=== PATIENT | female | born 1995 | race Hispanic/Latino ===

== ENCOUNTER 2018-08-06 03:29 | Emergency (ER) | payer SELFPAY ==
--- OUTSIDE RECORDS SUMMARY | 2018-08-06 03:31 | XMS REPORT ---
:1995 [facility] [address] [place] [address] Care Team Providers Name Role Phone Unavailable Unavailable Unavailable Problems This patient has no known problems. Allergies, Adverse Reactions, Alerts This patient has no known allergies or adverse reactions. Medications This patient has no known medications.
[2018-08-06 04:00] LABS: Absolute Lymphocytes (CBC) 3.7 K/uL (0.7-4.9); Absolute Monocytes 0.8 K/uL (0.1-1.3); Absolute Neutrophil 4.8 K/uL (1.8-8.0); Basophils % 0.6 % (0-1.3); Eosinophils % 1.3 % (0-4.4); Hematocrit 37.8 % (36.0-45.0); Lymphocytes % 38.9 % (15.3-44.8); MCH 30.2 pg (27.0-35.0); MCV 87.4 fL (80-100); MPV 7.8 fL (7.6-11.3); Monocytes % 8.9 % (3.3-12.3); RBC Red Blood Cell Count 4.33 M/uL (3.86-4.86)
[2018-08-06 04:20] LABS: Urine Blood 3+ (NEG); Urine Glucose NEGATIVE (NEG); Urine Protein NEGATIVE (NEG); Urine Specific Gravity 1.015 (1.005-1.030); Urine pH 6.5 (5.0-7.0)
[2018-08-06 04:25] LABS: ALT/SGPT 22 U/L (12-78); AST/SGOT 11 U/L (15-37); Albumin 3.8 g/dL (3.4-5.0); Alkaline Phosphatase 71 U/L (45-117); BUN Blood Urea Nitrogen 10 mg/dL (7-18); Bicarbonate 26 mmol/L (21-32); Bilirubin Direct < 0.1 mg/dL (0-0.2); Bilirubin Total 0.2 mg/dL (0.2-1.0); Glucose Level 94 mg/dL (74-106); Lipase 139 U/L (73-393); Potassium 3.6 mmol/L (3.5-5.1); Protein, Total 8.4 g/dL (6.4-8.2); Sodium Level 136 mmol/L (136-145)
--- NOTE | 2018-08-06 05:02 | ER ---
Nurse's Notes [facility] Name: Carlene Todd Age: 23 yrs Sex: Female : 1995 Arrival Date: 08/06/2018 Time: 03:32 Bed 5 Private MD: Diagnosis: Abdominal tenderness;Dysmenorrhea, unspecified Presentation: 08/06 03:43 Presenting complaint: Patient states: she is having lower abdominal pain starting a few bb days ago and burning with urination denies nausea, vomiting or diarrhea. Transition of care: patient was not received from another setting of care. Onset of symptoms was August 03, 2018. Risk Assessment: Do you want to hurt yourself or someone else? Patient reports no desire to harm self or others. Initial Sepsis Screen: Does the patient meet any 2 criteria? No. Patient's initial sepsis screen is negative. Does the patient have a suspected source of infection? No. Patient's initial sepsis screen is negative. Care prior to arrival: None. 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 - Social history:: Smoking status: Patient/guardian denies using tobacco, Patient/guardian denies using alcohol, street drugs. - Ebola Screening: : No symptoms or risks identified at this time. Screenin:00 Abuse screen: Denies threats or abuse. Denies injuries from another. Nutritional rr5 screening: No deficits noted. Tuberculosis screening: No symptoms or risk factors identified. Fall Risk None identified. Assessment: 04:00 General: Appears in no apparent distress. comfortable, Behavior is calm, cooperative, rr5 appropriate for age. Pain: Complains of pain in right and lower quadrant Pain does not radiate. Pain currently is 5 out of 10 on a pain scale. Quality of pain is described as aching, Pain began gradually. Neuro: Level of Consciousness is awake, alert, obeys commands, Oriented to person, place, time, situation. Cardiovascular: Capillary refill < 3 seconds Patient's skin is warm and dry. Respiratory: Airway is patent Respiratory effort is even, unlabored, Respiratory pattern is regular, symmetrical. GI: Bowel sounds present X 4 quads. Abd is soft and non tender. : Reports burning with urination. EENT: No signs and/or symptoms were reported regarding the EENT system. Derm: No signs and/or symptoms reported regarding the dermatologic system. Musculoskeletal: No signs and/or symptoms reported regarding the musculoskeletal system. 05:00 Reassessment: Patient appears in no apparent distress at this time. Patient and/or rr5 family updated on plan of care and expected duration. Pain level reassessed. 05:52 Reassessment: Patient appears in no apparent distress at this time. Patient and/or rr5 family updated on plan of care and expected duration. Pain level reassessed. discharge instruction given and explained without complaints made. Vital Signs: 03:46 BP 127 / 62; Pulse 106; Resp 16 S; Temp 98.2(O); Pulse Ox 100% on R/A; Weight 73.94 kg bb (M); Height 4 ft. 11 in. (149.86 cm) (R); Pain 10/10; 04:30 BP 121 / 72; Pulse 101; Resp 18; Pulse Ox 98% on R/A; rr5 05:36 BP 127 / 99; Pulse 100; Resp 18; Pulse Ox 99% on R/A; rr5 05:51 BP 121 / 80; Pulse 95; Resp 16; Pulse Ox 99% on R/A; rr5 03:46 Body Mass Index 32.92 (73.94 kg, 149.86 cm) ED Course: 03:32 Patient arrived in ED. al2 03:46 Triage completed. bb 03:46 Arm band placed on Patient placed in an exam room, on a stretcher, on pulse oximetry. bb 03:48 Urine collected: clean catch specimen, blood tinged. bb 04:00 Patient has correct armband on for positive identification. rr5 04:00 Pulse ox on. NIBP on. rr5 04:00 Inserted saline lock: 20 gauge in right antecubital area, using aseptic technique. rr5 Blood collected. 04:05 Milton Christianson MD is Attending Physician. phillip 05:01 Luis Stout MD is Referral Physician. [facility] 05:32 Fish Xiong, RN is Primary Nurse. rr5 05:53 No provider procedures requiring assistance completed. IV discontinued, intact, rr5 bleeding controlled, No redness/swelling at site. Pressure dressing applied. Administered Medications: 05:15 Drug: Motrin 600 mg Route: PO; rr5 05:52 Follow up: Response: No adverse reaction rr5 Outcome: 05:02 Discharge ordered by . [facility] 05:53 Discharged to home ambulatory. rr5 05:53 Condition: stable 05:53 Discharge instructions given to patient, Instructed on discharge instructions, follow up and referral plans. medication usage, Demonstrated understanding of instructions, follow-up care, medications, Prescriptions given X 3. 05:55 Patient left the ED. rr5 Signatures: Milton Christianson MD MD cha Ballard, Brenda, RN RN Celsa Winkler Raymond, RN RN rr5
--- NOTE | 2018-08-06 05:03 | EDPHYS ---
Physician Documentation [facility] Name: Carlene Todd Age: 23 yrs Sex: Female : 1995 Arrival Date: 08/06/2018 Time: 03:32 Bed 5 Private MD: ED Physician Milton Christianson HPI: 08/06 04:58 This 23 yrs old Female presents to ER via Ambulatory with complaints of phillip Abdominal Cramping, Abdominal Pain. 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 - Social history:: Smoking status: Patient/guardian denies using tobacco, Patient/guardian denies using alcohol, street drugs. - Ebola Screening: : No symptoms or risks identified at this time. ROS: 04:59 Constitutional: Negative for fever, chills, and weight loss, Eyes: Negative for injury, phillip pain, redness, and discharge, ENT: Negative for injury, pain, and discharge, Neck: Negative for injury, pain, and swelling, Cardiovascular: Negative for chest pain, palpitations, and edema, Respiratory: Negative for shortness of breath, cough, wheezing, and pleuritic chest pain, Back: Negative for injury and pain, : Negative for injury, bleeding, discharge, and swelling, MS/Extremity: Negative for injury and deformity, Skin: Negative for injury, rash, and discoloration, Neuro: Negative for headache, weakness, numbness, tingling, and seizure, Psych: Negative for depression, anxiety, suicide ideation, homicidal ideation, and hallucinations, Allergy/Immunology: Negative for hives, rash, and allergies, Endocrine: Negative for neck swelling, polydipsia, polyuria, polyphagia, and marked weight changes, Hematologic/Lymphatic: Negative for swollen nodes, abnormal bleeding, and unusual bruising. 04:59 Abdomen/GI: Positive for abdominal pain, abdominal cramps, of the right lower quadrant and left lower quadrant. Exam: 04:59 Constitutional: This is a well developed, well nourished patient who is awake, alert, phillip and in no acute distress. Head/Face: Normocephalic, atraumatic. Eyes: Pupils equal round and reactive to light, extra-ocular motions intact. Lids and lashes normal. Conjunctiva and sclera are non-icteric and not injected. Cornea within normal limits. Periorbital areas with no swelling, redness, or edema. ENT: Nares patent. No nasal discharge, no septal abnormalities noted. Tympanic membranes are normal and external auditory canals are clear. Oropharynx with no redness, swelling, or masses, exudates, or evidence of obstruction, uvula midline. Mucous membranes moist. Neck: Trachea midline, no thyromegaly or masses palpated, and no cervical lymphadenopathy. Supple, full range of motion without nuchal rigidity, or vertebral point tenderness. No Meningismus. Chest/axilla: Normal chest wall appearance and motion. Nontender with no deformity. No lesions are appreciated. Cardiovascular: Regular rate and rhythm with a normal S1 and S2. No gallops, murmurs, or rubs. Normal PMI, no JVD. No pulse deficits. Respiratory: Lungs have equal breath sounds bilaterally, clear to auscultation and percussion. No rales, rhonchi or wheezes noted. No increased work of breathing, no retractions or nasal flaring. Back: No spinal tenderness. No costovertebral tenderness. Full range of motion. Skin: Warm, dry with normal turgor. Normal color with no rashes, no lesions, and no evidence of cellulitis. MS/ Extremity: Pulses equal, no cyanosis. Neurovascular intact. Full, normal range of motion. Neuro: Awake and alert, GCS 15, oriented to person, place, time, and situation. Cranial nerves II-XII grossly intact. Motor strength 5/5 in all extremities. Sensory grossly intact. Cerebellar exam normal. Normal gait. Psych: Awake, alert, with orientation to person, place and time. Behavior, mood, and affect are within normal limits. 04:59 Abdomen/GI: Inspection: abdomen appears normal, Bowel sounds: normal, Palpation: abdomen is soft and non-tender, Liver: no appreciated palpable abnormalities, Hernia: not appreciated. Vital Signs: 03:46 BP 127 / 62; Pulse 106; Resp 16 S; Temp 98.2(O); Pulse Ox 100% on R/A; Weight 73.94 kg bb (M); Height 4 ft. 11 in. (149.86 cm) (R); Pain 10/10; 04:30 BP 121 / 72; Pulse 101; Resp 18; Pulse Ox 98% on R/A; rr5 05:36 BP 127 / 99; Pulse 100; Resp 18; Pulse Ox 99% on R/A; rr5 05:51 BP 121 / 80; Pulse 95; Resp 16; Pulse Ox 99% on R/A; rr5 03:46 Body Mass Index 32.92 (73.94 kg, 149.86 cm) bb MDM: 04:05 Patient medically screened. [facility] 05:00 Data reviewed: vital signs, nurses notes, lab test result(s). [facility] 08/06 03:43 Order name: Basic Metabolic Panel [facility] 08/06 03:43 Order name: CBC with Diff [facility] 08/06 03:43 Order name: Creatinine for Radiology [facility] 08/06 03:43 Order name: Hepatic Function [facility] 08/06 03:43 Order name: Lipase [facility] 08/06 03:44 Order name: Basic Metabolic Panel; Complete Time: 04:47 EDDC 08/06 03:44 Order name: CBC with Automated Diff; Complete Time: 04:47 EDDC 08/06 03:44 Order name: Liver (Hepatic) Function; Complete Time: 04:47 EDMS 08/06 03:44 Order name: Lipase; Complete Time: 04:47 EDDC 08/06 03:52 Order name: Urine Dipstick--Ancillary (enter results) 08/06 03:52 Order name: Urine --Ancillary (enter results) 08/06 03:52 Order name: Urine Dipstick-Ancillary; Complete Time: 04:47 EDMS 08/06 03:52 Order name: Urine --Ancillary; Complete Time: 04:47 EDDC 08/06 03:43 Order name: IV Saline Lock; Complete Time: 03:55 tl2 08/06 03:43 Order name: Labs collected and sent; Complete Time: 03:55 tl2 08/06 03:43 Order name: Urine Dipstick-Ancillary (obtain specimen); Complete Time: 03:43 tl2 08/06 03:43 Order name: Urine Test (obtain specimen); Complete Time: 03:44 tl2 Administered Medications: 05:15 Drug: Motrin 600 mg Route: PO; rr5 05:52 Follow up: Response: No adverse reaction rr5 Disposition: 08/06/18 05:02 Discharged to Home. Impression: Abdominal tenderness, Dysmenorrhea, unspecified. - Condition is Stable. - Discharge Instructions: Abdominal Pain, Adult, Dysmenorrhea, Abdominal Pain, Adult, [id number], Dysmenorrhea, Zsae-oj-Ault. - Prescriptions for Tylenol- Codeine #3 300-30 mg Oral Tablet - take 2 tablet by ORAL route every 6 hours As needed; 30 tablet. Motrin IB 200 mg Oral Tablet - take 2 tablet by ORAL route every 6 hours As needed as needed with food; 30 tablet. Cipro 250 mg Oral Tablet - take 1 tablet by ORAL route every 12 hours; 14 tablet. - Medication Reconciliation Form, Thank You Letter, Antibiotic Education, Prescription Opioid Use, Work release form, Family Work Release form. - Follow up: Private Physician; When: 2 - 3 days; Reason: Recheck today's complaints, Continuance of care, Re-evaluation by your physician. Follow up: Luis Stout MD; When: 2 - 3 days; Reason: Recheck today's complaints, Continuance of care, Re-evaluation by your physician. - Problem is new. - Symptoms have improved. Signatures: Dispatcher [employer] [facility] Milton Christianson MD MD cha Ballard, Brenda, RN RN Zulema Sauceda RN RN tl2 Fish Xiong RN RN rr5 Corrections: (The following items were deleted from the chart) 04:43 03:44 Creatinine (Radiology Only) ordered. [facility] 05:55 05:02 08/06/2018 05:02 Discharged to Home. Impression: Abdominal tenderness; rr5 Dysmenorrhea, unspecified. Condition is Stable. Forms are Medication Reconciliation Form, Thank You Letter, Antibiotic Education, Prescription Opioid Use. Follow up: Private Physician; When: 2 - 3 days; Reason: Recheck today's complaints, Continuance of care, Re-evaluation by your physician. Follow up: Luis Stout; When: 2 - 3 days; Reason: Recheck today's complaints, Continuance of care, Re-evaluation by your physician. Problem is new. Symptoms have improved. phillip
[2018-08-06] MEDS ORDERED: IBUPROFEN 400 MG TAB ONE (05:25)
[2018-08-06] MEDS ORDERED: IBUPROFEN 200 MG TAB PO ONE (05:25)
== END 2018-08-06 05:55 | disposition home or self-care (01) ==
LOC: ER 03:29
DX: N94.6 Dysmenorrhea, unspecified (principal)
CPT/HCPCS: 36415; 80048; 80076; 81003; 81025; 83690; 85025; 99284

== ENCOUNTER 2022-02-13 18:36 | Emergency (ER) | payer SELFPAY ==
--- OUTSIDE RECORDS SUMMARY | 2022-02-13 18:39 | XMS REPORT | Continuity of Care Document ---
:1995 Author Organization [facility] t Address [address] [place] [address] Care Team Providers Name Role Phone Marlo Chahal Primary Care Physician [phone] Akinsidanilo CARDENASP, C Attending Clinician Payers Payer Name Policy Type Policy Number Effective Date Expiration Date S ource Problems Condition Condition Condition Status Onset Resolution Last Treating Co mments Source Name Details Category Date Date Treatment Clinician Date Dysuria Dysuria Disease Active Univers 8-31 ity of 00:00: [address] Vaginal Vaginal Disease Active Univers itching itching 8-31 ity of 00:00: [address] Other Other Disease Active Univers general general 3-08 it[place] of counseling [place] and advice and advice 00 De dical for [facility] Branch contracept contracept bridgett bridgett management management Obesity Obesity Disease Active Univers (BMI (BMI 3-08 ity of 30-39.9) 30-39.9) 00:00: [address] Refused Refused Disease Active 2019-08 Univers influenza influenza 1-12 ity of vaccine vaccine 00:00: [address] Susceptibl Susceptibl Disease Active U nivers e to e to 7-29 ity of varicella [place] (non-immun (non-immun 00 Me dical e), e), Branch currently currently Rubella Rubella Disease Active Overview: Univ ers non-immune non-immune 11 Formattin ity of status, status, 00:00: g of this [place] antepartum antepartum 00 note Me dical might be Branch different from the original. Needs Rubella vaccine in PP Allergies, Adverse Reactions, Alerts This patient has no known allergies or adverse reactions. Social History Social Habit Start Date Stop Date Quantity Comments Source History SDOH University o f Alcohol Frequency [place] M edical Branch History [facility] University o f Alcohol Std [place] Medical Drinks Branch History [facility] University o f Alcohol Binge [place] Medic al Branch Exposure to Not sure [facility] SARS-CoV-2 [facility] (event) [place] Alcohol Comment 2021-11-29 2021-11-29 social Universit y of 00:00:00 00:00:00 [facility] Alcohol intake 2021-11-29 2021-11-29 Current drinker Unive rsity of 00:00:00 00:00:00 of alcohol [place] [facility] (finding) Branch Tobacco use and 2015-05-16 2015-05-16 Never used Universit y of exposure 00:00:00 00:00:00 [facility] Sex Ass[birth year] At [birth year] Universit y of 00:00:00 00:00:00 [facility] Smoking Status Start Date Stop Date Source Never smoker [facility] Medications Ordered Filled Start Stop Current Ordering Indication Dosage Frequency Signature Comments Components Source Medication Medication Date Date Medication? Clinician (SIG) Name Name dante Yes [id number] 1{tbl} Take 1 Univers ne 0.35 mg 4-06 tablet by ity of tablet 00:00: mouth 00 daily. Medical Branch norethindro Yes [id number] 1{tbl} Take 1 Univers ne 0.35 mg 4-06 tablet by ity of tablet 00:00: mouth [place] 00 daily. Medical Branch VITAFOL Yes TAKE ONE Unive rs ULTRA 29 mg 1-10 (1) ity of iron- 1 00:00: [place]) [place] mg-200 mg 00 BY MOUTH Medica l Cap ONCE A Branch DAY. VITAFOL Yes TAKE ONE Unive rs ULTRA 29 mg 1-10 (1) ity of iron- 1 00:00: [place] mg-200 mg 00 BY MOUTH Medica l Cap ONCE A Branch DAY. Yes [id number] 1{tbl} Take 1 U nivers vitamin 1-06 tablet by ity of w/FA tablet 00:00: mouth [place] 00 daily. Medical Branch docusate Yes [id number] 240mg Take 1 Un [place] calcium 240 1-06 capsule by it y of mg capsule 00:00: mouth once [place] 00 daily as Medical needed for Branch Constipati on. ferrous Yes [id number] 325mg Take 1 Uni vers sulfate 325 1-06 tablet by ity of mg (65 mg 00:00: mouth 2 [place] iron) 00 (two) Medical tablet times Branch daily. ibuprofen Yes [id number] 600mg Take 1 U nivers 600 mg 1-06 tablet by ity of tablet 00:00: mouth [place] 00 every 6 Medical (six) Branch hours as needed (Pain). Take with food or milk. Yes [id number] 1{tbl} Take 1 U nivers vitamin 1-06 tablet by ity of w/FA tablet 00:00: mouth [place] 00 daily. Medical Branch docusate Yes [id number] 240mg Take 1 Un [place] calcium 240 1-06 capsule by it y of mg capsule 00:00: mouth once [place] 00 daily as Medical needed for Branch Constipati on. ferrous Yes [id number] 325mg Take 1 Uni vers sulfate 325 1-06 tablet by ity of mg (65 mg 00:00: mouth 2 [place] iron) 00 (two) Medical tablet times Branch daily. ibuprofen Yes [id number] 600mg Take 1 U nivers 600 mg 1-06 tablet by ity of tablet 00:00: mouth [place] 00 every 6 Medical (six) Branch hours as needed (Pain). Take with food or milk. Immunizations Ordered Filled Immunization Date Status Comments [facility] Branch e Immunization Name Name HPV9 2020-10-31 Completed [facility] 00:00:00 [facility] HPV9 2020-10-31 Completed [facility] 00:00:00 [facility] TDAP 2020-06-23 Completed University of 00:00:00 [facility] TDAP 2020-06-23 Completed University of 00:00:00 [facility] HPV9 2017-04-09 Completed University of 00:00:00 [facility] HPV9 2017-04-09 Completed University of 00:00:00 [facility] Branch TDAP 2017-01-24 Completed University of 00:00:00 [facility] Branch TDAP 2017-01-24 Completed University of 00:00:00 [facility] Branch TDAP 2011-08-26 Completed University of 00:00:00 [facility] TDAP 2011-08-26 Completed University of 00:00:00 [facility] HEPATITIS A 2006-10-31 Completed University of 00:00:00 [facility] HPV 2006-10-31 Completed University of 00:00:00 [facility] Branch Varicella 2006-10-31 Completed University of (varivax)(chicken 00:00:00 [place] M edical pox) Branch HEPATITIS A 2006-10-31 Completed University of 00:00:00 [facility] HPV 2006-10-31 Completed University of 00:00:00 [facility] Branch Varicella 2006-10-31 Completed University of (varivax)(chicken 00:00:00 [facility] edical pox) Branch Procedures This patient has no known procedures. 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
--- NOTE | 2022-02-13 19:26 | ER ---
Nurse's Notes [facility] Name: Carlene Kumar Age: 26 yrs Sex: Female : 1995 Arrival Date: 02/13/2022 Time: 18:38 Bed 26 Private MD: Diagnosis: Otitis media, unspecified, right ear Presentation: 02/13 19:03 Chief complaint: Patient states: Right ear pain that began yesterday with runny nose; vg1 denies cough or sore throat. Coronavirus screen: Vaccine status: Patient reports being unvaccinated. Client denies travel out of the [place] in the last 14 days. Ebola Screen: Patient denies exposure to infectious person. Patient denies travel to an Ebola-affected area in the 21 days before illness onset. Initial Sepsis Screen: Does the patient meet any 2 criteria? No. Patient's initial sepsis screen is negative. Does the patient have a suspected source of infection? No. Patient's initial sepsis screen is negative. Risk Assessment: Do you want to hurt yourself or someone else? Patient reports no desire to harm self or others. Onset of symptoms was February 12, 2022. 19:03 Method Of Arrival: Ambulatory vg1 19:03 Acuity: CAYLA 4 vg1 Triage Assessment: 19:04 General: Appears uncomfortable, Behavior is calm, cooperative. Pain: Complains of pain vg1 in right ear Pain currently is 10 out of 10 on a pain scale. 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 - Social history:: Smoking status: Patient denies any tobacco usage or history of. Screenin:18 Abuse screen: Denies threats or abuse. Nutritional screening: No deficits noted. 1 Tuberculosis screening: No symptoms or risk factors identified. Fall Risk None identified. Assessment: 19:18 Reassessment: Patient appears in no apparent distress at this time. General: Appears. 1 EENT: No deficits noted. Vital Signs: 19:03 BP 114 / 68; Pulse 93; Resp 16; Temp 98.6(TE); Pulse Ox 100% on R/A; Weight 79.38 kg; 1 Height 4 ft. 11 in. (149.86 cm); Pain 10/10; 19:18 BP 100 / 64; Pulse 90; Resp 18; Pulse Ox 100% on R/A; bh1 19:33 BP 110 / 54; Pulse 100; Resp 18; Temp 98.2; Pulse Ox 100% on R/A; bh1 19:03 Body Mass Index 35.35 (79.38 kg, 149.86 cm) [facility] ED Course: 18:38 Patient arrived in ED. rg4 19:02 Milton Gonzalez PA is PHCP. cp 19:02 Milton Christianson MD is Attending Physician. cp 19:04 Triage completed. 1 19:04 Arm band placed on. 1 19:18 Meeta Zepeda, RN is Primary Nurse. 1 19:18 No apparent distress. Awaiting disposition. 1 19:18 Patient has correct armband on for positive identification. Pulse ox on. NIBP on. 1 19:18 No provider procedures requiring assistance completed. Patient did not have IV access [facility] during this emergency room visit. Administered Medications: No medications were administered Medication: 19:18 VIS not applicable for this client. [facility] Outcome: 19:26 Discharge ordered by . cp 19:33 Discharged to home ambulatory. 1 19:33 Condition: good 19:33 Discharge instructions given to patient, Instructed on discharge instructions, follow up and referral plans. medication usage, Demonstrated understanding of instructions, follow-up care, medications, Prescriptions given X 2. 19:34 Patient left the ED. [facility] Signatures: Milton Gonzalez PA PA cp Garcia, Rubi rg4 Rosario Louis RN RN [facility] Meeta Zepeda, LEONOR RN [facility] Corrections: (The following items were deleted from the chart) 19:05 19:04 Home Meds: Orsythia 0.1-20 mg-mcg Oral tab 1 tab once daily; [place] [id number]
--- NOTE | 2022-02-13 19:26 | EDPHYS ---
Physician Documentation [facility] Name: Carlene Kumar Age: 26 yrs Sex: Female : 1995 Arrival Date: 02/13/2022 Time: 18:38 Bed 26 Private MD: ED Physician Milton Christianson HPI: 02/13 19:19 This 26 yrs old Female presents to ER via Ambulatory with complaints of Ear cp Pain. 19:19 The patient presents with pain, that is acute. The complaints affect the right ear. cp Onset: The symptoms/episode began/occurred yesterday. Associated signs and symptoms: Pertinent negatives: cough, fever, sinus trouble, sore throat, vomiting. Severity of symptoms: in the emergency department the symptoms are unchanged despite home interventions. 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 - Social history:: Smoking status: Patient denies any tobacco usage or history of. ROS: 19:22 Eyes: Negative for injury, pain, redness, and discharge. cp 19:22 Constitutional: Negative for body aches, chills, fever, poor PO intake. 19:22 ENT: Positive for ear pain, Negative for drainage from ear(s), sore throat, difficulty swallowing, difficulty handling secretions. 19:22 Respiratory: Negative for cough, shortness of breath, wheezing. 19:22 Abdomen/GI: Negative for abdominal pain, vomiting, diarrhea, constipation. 19:22 Skin: Negative for rash. 19:22 Neuro: Negative for altered mental status, headache, weakness. 19:22 All other systems are negative. Exam: 19:23 Head/Face: Normocephalic, atraumatic. cp 19:23 Constitutional: The patient appears in no acute distress, alert, awake, non-toxic, well developed, well nourished. 19:23 Eyes: Periorbital structures: appear normal, Conjunctiva: normal, no exudate, no injection, Lids and lashes: appear normal, bilaterally. 19:23 ENT: External ear(s): are unremarkable, Ear canal(s): swelling, of the right canal, TM's: bulging, on the right, dullness, on the right, Nose: is normal, Mouth: Lips: moist, Oral mucosa: moist, Posterior pharynx: Airway: no evidence of obstruction, patent. 19:23 Neck: ROM/movement: is normal, is supple, without pain, no range of motions limitations, no meningismus. 19:23 Chest/axilla: Inspection: normal. 19:23 Cardiovascular: Rate: normal. 19:23 Respiratory: the patient does not display signs of respiratory distress, Respirations: normal, no use of accessory muscles, no retractions, labored breathing, is not present. 19:23 Abdomen/GI: Exam negative for discomfort, distension, guarding, Inspection: abdomen appears normal. Vital Signs: 19:03 BP 114 / 68; Pulse 93; Resp 16; Temp 98.6(TE); Pulse Ox 100% on R/A; Weight 79.38 kg; vg1 Height 4 ft. 11 in. (149.86 cm); Pain 10/10; 19:18 BP 100 / 64; Pulse 90; Resp 18; Pulse Ox 100% on R/A; bh1 19:33 BP 110 / 54; Pulse 100; Resp 18; Temp 98.2; Pulse Ox 100% on R/A; bh1 19:03 Body Mass Index 35.35 (79.38 kg, 149.86 cm) vg1 MDM: 19:15 Patient medically screened. cp 19:25 Data reviewed: vital signs, nurses notes, and as a result, I will discharge patient. cp Administered Medications: No medications were administered Disposition Summary: 02/13/22 19:26 Discharge Ordered Location: Home cp Problem: new cp Symptoms: are unchanged cp Condition: Stable cp Diagnosis - Otitis media, unspecified, right ear cp Followup: cp - With: Private Physician - When: 2 - 3 days - Reason: Worsening of condition Discharge Instructions: - Discharge Summary Sheet cp - Otitis Media, Adult cp Forms: - Medication Reconciliation Form cp - Thank You Letter cp - Antibiotic Education cp - Prescription Opioid Use cp Prescriptions: - Augmentin 875-125 mg Oral Tablet - take 1 tablet by ORAL route every 12 hours for 10 days; 20 tablet; Refills: 0, cp Product Selection Permitted - Ibuprofen 800 mg Oral Tablet - take 1 tablet by ORAL route every 8 hours As needed take with food; 30 tablet; cp Refills: 0, Product Selection Permitted Signatures: Milton Gonzalez PA PA cp Garcia, Victoria RN RN vg1 Corrections: (The following items were deleted from the chart) 19:05 19:04 Home Meds: Orsythia 0.1-20 mg-mcg Oral tab 1 tab once daily; vg1 vg1
[2022-02-13 19:52] VITALS: O2SAT 100
[2022-02-13 19:55] VITALS: BP 110/54; TEMP 98.2
== END 2022-02-13 19:34 | disposition home or self-care (01) ==
LOC: ER 18:36
DX: H66.91 Otitis media, unspecified, right ear (principal)

== ENCOUNTER 2022-02-15 11:15 | Emergency (ER) | payer SELFPAY ==
--- OUTSIDE RECORDS SUMMARY | 2022-02-15 11:19 | XMS REPORT | Continuity of Care Document ---
:1995 Author Organization [facility] t Address [address] [place] [address] Care Team Providers Name Role Phone Marlo Chahal Primary Care Physician [phone] Sandeep CARDENASP C Attending Clinician Payers Payer Name Policy Type Policy Number Effective Date Expiration Date S ource Problems Condition Condition Condition Status Onset Resolution Last Treating Co mments Source Name Details Category Date Date Treatment Clinician Date Dysuria Dysuria Disease Active Univers 8-31 ity of 00:00: [address] Vaginal Vaginal Disease Active Univers itching itching 8-31 ity of 00:00: [address] Other Other Disease Active Univers general general 3-08 it[place] of [place] advice and advice 00 Ia dical for Branch contracept contracept bridgett bridgett management management Obesity Obesity Disease Active Univers (BMI (BMI 3-08 ity of 30-39.9) 30-39.9) 00:00: [address] Refused Refused Disease Active 2019-08 Univers influenza influenza 1-12 ity of vaccine vaccine 00:00: [address] Susceptibl Susceptibl Disease Active U nivers e to e to 7-29 ity of varic[place]-immun (non-immun 00 Me dical e), e), Branch currently currently Rubella Rubella Disease Active Overview: Univ ers non-immune non-immune 09-05 [place] ity of status, status, 00:00: g of this [place] antepartum antepartum 00 note Me dical might be Branch different from the original. Needs Rubella vaccine in PP Allergies, Adverse Reactions, Alerts This patient has no known allergies or adverse reactions. Social History Social Habit Start Date Stop Date Quantity Comments Source History SDOH University o f Alcohol Frequency [place] M edical Branch History SDOH University o f Alcohol Std [place] [facility] Drinks Branch History [facility] University o f Alcohol Binge [place] Medic al Branch Exposure to Not sure [facility] SARS-CoV-2 [facility] (event) [place] Alcohol Comment 2021-11-29 2021-11-29 social Universit y of 00:00:00 00:00:00 [facility] Alcohol intake 2021-11-29 2021-11-29 Current drinker Unive rsity of 00:00:00 00:00:00 of alcohol [place] [facility] (finding) Branch Tobacco use and 2015-05-16 2015-05-16 Never used Universit y of exposure 00:00:00 00:00:00 [facility] Sex Assigned At [birth year] Universit y of 00:00:00 00:00:00 [facility] Smoking Status Start Date Stop Date Source Never smoker [facility] Medications Ordered Filled Start Stop Current Ordering Indication Dosage Frequency Signature Comments Components Source Medication Medication Date Date Medication? Clinician (SIG) Name Name mayero Yes [id number] 1{tbl} Take 1 Univers ne 0.35 mg 4-06 tablet by ity of tablet 00:00: mouth 00 daily. Medical Branch norethindro Yes [id number] 1{tbl} Take 1 Univers ne 0.35 mg 4-06 tablet by ity of tablet 00:00: mouth 00 daily. Medical Branch VITAFOL Yes TAKE [...] l Cap ONCE A Branch DAY. Yes [id number] 1{tbl} Take 1 U nivers vitamin 1-06 tablet by ity of w/FA tablet 00:00: mouth [place] 00 daily. Medical Branch docusate Yes [id number] 240mg Take 1 Un [place] calcium 240 1-06 capsule by it y of mg capsule 00:00: mouth once [place] 00 daily as Medical needed for Branch Constipati on. ferrous Yes [id number] 325mg Take 1 Uni vers sulfate 325 1-06 tablet by ity of mg (65 mg 00:00: mouth 2 [place] iron) 00 (two) Medical tablet times Branch daily. ibuprofen Yes [id number] 600mg Take 1 U nivers 600 mg 1-06 tablet by ity of tablet 00:00: mouth [place] 00 every 6 Medical (six) Branch hours as needed (Pain). Take with food or milk. Yes [id number] 1{tbl} Take 1 U nivers vitamin 1-06 tablet by ity of w/FA tablet 00:00: mouth [place] 00 daily. Medical Branch docusate Yes [id number] 240mg Take 1 Un [place] calcium 240 1-06 capsule by it y of mg capsule 00:00: mouth once [place] 00 daily as Medical needed for Branch Constipati on. ferrous Yes [id number] 325mg Take 1 Uni vers sulfate 325 1-06 tablet by ity of mg (65 mg 00:00: mouth 2 [place] iron) 00 (two) Medical tablet times Branch daily. ibuprofen Yes [id number] 600mg Take 1 U nivers 600 mg 1-06 tablet by ity of tablet 00:00: mouth [place] 00 every 6 Medical (six) Branch hours as needed (Pain). Take with food or milk. Immunizations Ordered Filled Immunization Date Status Comments [facility] e Immunization Name Name HPV9 2020-10-31 Completed [facility] 00:00:00 [facility] HPV9 2020-10-31 Completed [facility] 00:00:00 [facility] TDAP 2020-06-23 Completed University of 00:00:00 [facility] TDAP 2020-06-23 Completed University of 00:00:00 [facility] HPV9 2017-04-09 Completed University of 00:00:00 [facility] Branch HPV9 2017-04-09 Completed University of 00:00:00 [facility] TDAP 2017-01-24 Completed University of 00:00:00 [facility] Branch TDAP 2017-01-24 Completed University of 00:00:00 [facility] Branch TDAP 2011-08-26 Completed University of 00:00:00 [facility] Branch TDAP 2011-08-26 Completed University of 00:00:00 [facility] Branch HEPATITIS A 2006-10-31 Completed University of 00:00:00 [facility] Branch HPV 2006-10-31 Completed University of 00:00:00 [facility] Varicella 2006-10-31 Completed University of (varivax)(chicken 00:00:00 [facility] edical pox) Branch HEPATITIS A 2006-10-31 Completed University of 00:00:00 [facility] HPV 2006-10-31 Completed University of 00:00:00 [facility] Branch Varicella 2006-10-31 Completed University of (varivax)(chicken 00:00:00 [facility] edical pox) Branch Procedures This patient has no known procedures. 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
--- NOTE | 2022-02-15 12:00 | EDPHYS ---
Physician Documentation [facility] Name: Carlene Kumar Age: 26 yrs Sex: Female : 1995 Arrival Date: 02/15/2022 Time: 11:16 Bed 5 Private MD: ED Physician Tucker Franco HPI: 02/15 11:52 This 26 yrs old Female presents to ER via Ambulatory with complaints of Ear cp Pain. 11:52 The patient presents with pain, that is acute. The complaints affect the right ear and cp left ear. 11:52 Associated signs and symptoms: Pertinent negatives: cough, fever, sinus trouble, sore cp throat, vomiting, drainage from ears. 11:52 Severity of symptoms: in the emergency department the symptoms are unchanged despite cp taking prescribed oral antibiotics. 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 ROS: 11:55 Constitutional: Negative for body aches, chills, fever, poor PO intake. cp 11:55 Eyes: Negative for injury, pain, redness, and discharge. cp 11:55 ENT: Positive for ear pain, Negative for drainage from ear(s), sinus congestion, sore throat, difficulty swallowing, difficulty handling secretions. 11:55 Respiratory: Negative for cough, shortness of breath, wheezing. 11:55 Abdomen/GI: Negative for abdominal pain, vomiting, diarrhea, constipation. 11:55 Skin: Negative for cellulitis, rash. 11:55 Neuro: Negative for altered mental status, dizziness, headache, weakness. 11:55 All other systems are negative. Exam: 11:57 Constitutional: The patient appears in no acute distress, alert, awake, non-toxic, well cp developed, well nourished. 11:57 Head/Face: Normocephalic, atraumatic. cp 11:57 Eyes: Periorbital structures: appear normal, Conjunctiva: normal, no exudate, no injection, Sclera: no appreciated abnormality, Lids and lashes: appear normal, bilaterally. 11:57 ENT: External ear(s): are unremarkable, Ear canal(s): erythema, that is minimal, bilaterally, purulent discharge, that is minimal, bilaterally, swelling, that is moderate, of the right canal, TM's: bulging, bilaterally, erythema, that is mild, bilaterally, Nose: is normal, Mouth: Lips: moist, Oral mucosa: pink and intact, moist, Posterior pharynx: Airway: no evidence of obstruction, patent. 11:57 Neck: ROM/movement: is normal, is supple, without pain, no range of motions limitations, no meningismus, Lymph nodes: no appreciated lymphadenopathy. 11:57 Chest/axilla: Inspection: normal. 11:57 Cardiovascular: Rate: tachycardic, Rhythm: regular. 11:57 Respiratory: the patient does not display signs of respiratory distress, Respirations: normal, no use of accessory muscles, no retractions. 11:57 Abdomen/GI: Exam negative for discomfort, distension, guarding, Inspection: abdomen appears normal. 11:57 Skin: cellulitis, is not appreciated, no rash present. Vital Signs: 11:31 BP 102 / 57; Pulse 115; Resp 18 S; Temp 98.3(O); Pulse Ox 100% on R/A; Weight 79.38 kg aa5 (R); Height 4 ft. 11 in. (149.86 cm) (R); Pain 10/10; 11:31 Body Mass Index 35.35 (79.38 kg, 149.86 cm) aa5 MDM: 11:23 Patient medically screened. cp 12:00 Data reviewed: vital signs, nurses notes. cp 12:00 Differential diagnosis: otitis media, otitis externa, ruptured TM, cerumen impaction. cp Counseling: I had a detailed discussion with the patient and/or guardian regarding: the historical points, exam findings, and any diagnostic results supporting the discharge/admit diagnosis, the need for outpatient follow up, an ENT specialist, to return to the emergency department if symptoms worsen or persist or if there are any questions or concerns that arise at home. Administered Medications: No medications were administered Disposition: 13:00 Co-signature as Attending Physician, Tucker Franco MD I agree with the assessment and kdr plan of care. Disposition Summary: 02/15/22 12:00 Discharge Ordered Location: Home cp Problem: an ongoing problem cp Symptoms: are unchanged cp Condition: Stable cp Diagnosis - Otitis externa in other diseases classified elsewhere, bilateral cp Followup: cp - With: Corina Alcantar MD - When: 2 - 3 days - Reason: Worsening of condition Discharge Instructions: - Discharge Summary Sheet cp - Ear Drops, Adult cp - Otitis Externa cp Forms: - Medication Reconciliation Form cp - Thank You Letter cp - Antibiotic Education cp - Prescription Opioid Use cp Prescriptions: - Ciprodex 0.3-0.1 % Otic Drops, Suspension - instill 4 drops by OTIC route every 12 hours for 7 days , for ears ONLY; 1 cp Container; Refills: 0, Product Selection Permitted Signatures: Tucker Franco MD MD kdr Britta Fortune RN RN aa5 Leah Hubbard RN RN ph Lisa, Milton, PA PA cp Corrections: (The following items were deleted from the chart) 11:35 11:34 PSHx: None; aa5 aa5
--- NOTE | 2022-02-15 12:00 | ER ---
Nurse's Notes [facility] Name: Carlene Kumar Age: 26 yrs Sex: Female : 1995 Arrival Date: 02/15/2022 Time: 11:16 Bed 5 Private MD: Diagnosis: Otitis externa in other diseases classified elsewhere, bilateral Presentation: 02/15 11:31 Chief complaint: Patient states: was seen here for ear pain 02/13/22 and is currently aa5 taking antibiotics, reports still has ear pain, started with pain to right ear and now it's both ears. Coronavirus screen: At this time, the client does not indicate any symptoms associated with coronavirus-19. Ebola Screen: Patient denies travel to an Ebola-affected area in the 21 days before illness onset. Initial Sepsis Screen: Does the patient meet any 2 criteria? No. Patient's initial sepsis screen is negative. Does the patient have a suspected source of infection? No. Patient's initial sepsis screen is negative. Risk Assessment: Do you want to hurt yourself or someone else? Patient reports no desire to harm self or others. Onset of symptoms was January 2022. 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 Screenin:37 Abuse screen: Denies threats or abuse. Nutritional screening: No deficits noted. [facility] Tuberculosis screening: No symptoms or risk factors identified. Fall Risk None identified. Assessment: 11:36 General: Appears in no apparent distress. Behavior is calm, cooperative. Pain: 6 Complains of pain in left ear Pain currently is 9 out of 10 on a pain scale. Quality of pain is described as sharp, shooting, Pain began 2-3 days ago. Is continuous. EENT: Ear canal w/ drainage noted from right ear Reports nasal congestion pain in forehead and left ear Pain is 8 out of 10 on a pain scale. Vital Signs: 11:31 BP 102 / 57; Pulse 115; Resp 18 S; Temp 98.3(O); Pulse Ox 100% on R/A; Weight 79.38 kg aa5 (R); Height 4 ft. 11 in. (149.86 cm) (R); Pain 10; 11:31 Body Mass Index 35.35 (79.38 kg, 149.86 cm) 5 ED Course: 11:16 Patient arrived in ED. mr 11:19 Milton Gonzalez PA is PHCP. cp 11:19 Tucker Franco MD is Attending Physician. cp 11:26 Leah Hubbard, RN is Primary Nurse. ph 11:26 Arm band placed on Patient placed in an exam room, on a stretcher. 11:33 Triage completed. aa5 11:37 Bed in low position. Call light in reach. 6 11:37 No provider procedures requiring assistance completed. 6 11:59 Corina Alcantar MD is Referral Physician. cp 12:19 Patient did not have IV access during this emergency room visit. aa5 Administered Medications: No medications were administered Outcome: 12:00 Discharge ordered by MD. cp 12:19 Discharged to home ambulatory. aa5 12:19 Condition: good 12:19 Discharge instructions given to patient, Instructed on discharge instructions, follow up and referral plans. medication usage, Demonstrated understanding of instructions, follow-up care, medications, Prescriptions given X 1. 12:20 Patient left the ED. 5 Signatures: Beena Ortiz mr FortuneBritta, RN RN [facility] Leah Hubbard, RN RN Milton Gonzalez PA PA cp Maria C Galicia RN RN [facility] Corrections: (The following items were deleted from the chart) 11:34 11:31 Chief complaint: Patient states: was seen here for ear pain 02/13/22 and is aa5 currently taking antibiotics, reports still has ear pain. aa5 11:35 11:34 PSHx: None; aa5 aa5
[2022-02-15 12:27] VITALS: BP 102/57; TEMP 98.3; O2SAT 100
== END 2022-02-15 12:20 | disposition home or self-care (01) ==
LOC: ER 11:15
DX: H60.93 Unspecified otitis externa, bilateral (principal)
CPT/HCPCS: 99282

== ENCOUNTER 2024-05-20 03:12 | Emergency (ER) | payer SELFPAY ==
--- OUTSIDE RECORDS SUMMARY | 2024-05-20 03:17 | XMS REPORT | Continuity of Care Document ---
Author Name Unknown Address [address] [facility] [place] [address] [facility] thconnect Address [address] [facility] [address] [facility] [place] [address] Care Team Providers Care Custody Officer Name Role Phone Marlo Chahal Primary Care Physician Un available David Regalado Attending Clinician [phone] David Regalado Attending Clinician [phone] TRICIA HOPKINS Attending Clinician Unavail able Tricia Mosher Attending Clinician + SUELLEN RICHARDSON Attending Clinician UnavailSuellen Adam CNM Attending Clinician [phone] Doctor Unassigned, [place] Attending Clinician U Marlo Thomas Attending Clinician UnaMARLO Lewis Attending Clinician Unavailab NAJMA Hackett Attending Clinician Unavailabl e Payers Payer Name Policy Type Policy Number Effective Date Expirati on Date Source [facility] [employer] [id number] 2020 00:00:00 FAMILY [employer]ANNING SONIA [id number] 2023 00:00:00 [employer] PENDING PENDING 2020 00:00:00 Problems Condition Name Condition Details Condition Category Status Onset Date Resolution Date Last Treatment Date Treating Clinician Comments Source History of abnormal cervical Pap smear History of abnormal cervical Pap smear Disease Active - 00:00: 00 Overview: Formattin g of this note might be different from the original. 11/2021 ASCUS07/2 022 negative, routine screening [facility] Obesity (BMI 30-39.9) Obesity (BMI 30-39.9) Disease Active 3-08 00:00: 00 [facility] Dysuria Dysuria Disease Resolve d 8-31 00:00: 00 2023-03-05 00:00:00 2023-03-05 15:27:04 [facility] Vaginal itching Vaginal itching Disease Resolve d 8- 00:00: 00 2023-03-05 00:00:00 2023-03-05 15:27:16 [facility] Well woman exam Well woman exam Disease Resolve d 3- 00:00: 00 2023-03-05 00:00:00 2023-03-05 15:27:03 [facility] Refused influenza vaccine Refused influenza vaccine Disease Resolve d 2019-08 1-12 00:00: 00 2023-03-05 00:00:00 2023-03-05 15:27:01 [facility] Susceptibl e to varicella (non-immun e), currently Susceptibl e to varicella (non-immun e), currently Disease Resolve d 7- 00:00: 00 2023-03-05 00:00:00 2023-03-05 15:27:00 [facility] Rubella non-immune status, antepartum Rubella non-immune status, antepartum Disease Resolve d - 00:00: 00 2023-03-05 00:00:00 2023-03-05 15:26:58 Overview: Formattin g of this note might be different from the original. Needs Rubella vaccine in PP [facility] care and examinatio n of lactating mother care and examinatio n of lactating mother Disease Resolve d 1-29 00:00: 00 2020-10-31 00:00:00 2020-10-31 16:11:59 [facility] Obesity affecting in third trimester Obesity affecting in third trimester Disease Resolve d 02-21 00:00: 00 2020-10-31 00:00:00 2020-10-31 16:12:05 [facility] Anemia, Anemia, Disease Resolve d 8-15 00:00: 00 2020-10-31 00:00:00 2020-10-31 16:12:07 [facility] 38 weeks gestation of 38 weeks gestation of Disease Resolve d 1-05 00:00: 00 2020-09-23 00:00:00 2020-09-23 15:54:50 [facility] Rupture of membranes with meconium present Rupture of membranes with meconium present Disease Resolve d 1-05 00:00: 00 2020-09-23 00:00:00 2020-09-23 15:54:43 [facility] Anemia of mother in , antepartum Anemia of mother in , antepartum Disease Resolve d 2019-08 0-16 00:00: 00 2020-09-23 00:00:00 2020-09-23 15:54:49 [facility] Supervisio n of high risk in third trimester Supervisio n of high risk in third trimester Disease Resolve d 02-21 00:00: 00 2020-09-23 00:00:00 2020-09-23 15:54:39 [facility] Multiparit y Multiparit y Disease Resolve d 02-21 00:00: 00 2020-09-23 00:00:00 2020-09-23 15:54:48 [facility] (spontaneo us vaginal delivery) (spontaneo us vaginal delivery) Disease Resolve d 0 8-13 00:00: 00 2020-09-23 00:00:00 2020-09-23 15:54:38 [facility] Single live Single live Disease Resolve d 8-13 00:00: 00 2020-09-23 00:00:00 2020-09-23 15:54:41 [facility] Placenta previa in second trimester Placenta previa in second trimester Disease Resolve d 24 00:00: 00 2020-07-19 00:00:00 2020-07-19 14:56:12 [facility] Encounter for control pills maintenanc e Encounter for control pills maintenanc e Disease Resolve d 02-03 00:00: 00 2020-02-22 00:00:00 2020-02-22 08:25:51 [facility] Well woman exam Well woman exam Disease Resolve d 02-03 00:00: 00 2020-02-22 00:00:00 2020-02-22 08:25:49 [facility] BMI 34.0-34.9, adult BMI 34.0-34.9, adult Disease Resolve d 02-03 00:00: 00 2020-02-22 00:00:00 2020-02-22 08:25:55 [facility] Depo-Prove ra contracept bridgett status Depo-Prove ra contracept bridgett status Disease Resolve d 6-07 00:00: 00 2020-02-22 00:00:00 2020-02-22 08:25:52 [facility] Encounter for contracept bridgett management , unspecifie d type Encounter for contracept bridgett management , unspecifie d type Disease Resolve d 6-23 00:00: 00 2020-02-22 00:00:00 2020-02-22 08:25:50 [facility] Vaginal yeast infection Vaginal yeast infection Disease Resolve d 4-03 00:00: 00 2020-02-22 00:00:00 2020-02-22 08:25:46 [facility] Class 1 obesity with body mass index (BMI) of 34.0 to 34.9 in adult, unspecifie d obesity type, unspecifie d whether serious comorbidit y present Class 1 obesity with body mass index (BMI) of 34.0 to 34.9 in adult, unspecifie d obesity type, unspecifie d whether serious comorbidit y present Disease Resolve d 2-27 00:00: 00 2020-02-22 00:00:00 2020-02-22 08:25:56 [facility] Well woman exam with routine gynecologi maddie exam Well woman exam with routine gynecologi maddie exam Disease Resolve d 2015-08 0-31 00:00: 00 2020-02-22 00:00:00 2020-02-22 08:25:48 [facility] Maternal varicella, non-immune Maternal varicella, non-immune Disease Resolve d 2-27 00:00: 00 2018-01-30 00:00:00 2018-01-30 08:53:30 [facility] Indication for care in labor or delivery Indication for care in labor or delivery Disease Resolve d 8-12 00:00: 00 2017-05-03 00:00:00 2017-05-03 11:09:52 [facility] 37 weeks gestation of 37 weeks gestation of Disease Resolve d 8-12 00:00: 00 2017-05-03 00:00:00 2017-05-03 11:29:38 [facility] Uterine size-date discrepanc y, antepartum , third trimester Uterine size-date discrepanc y, antepartum , third trimester Disease Resolve d 8-04 00:00: 00 2017-05-03 00:00:00 2017-05-03 11:29:35 [facility] Insufficie nt weight gain of , third trimester Insufficie nt weight gain of , third trimester Disease Resolve d 8-04 00:00: 00 2017-05-03 00:00:00 2017-05-03 11:29:36 [facility] Oligohydra mnios antepartum Oligohydra mnios antepartum Disease Resolve d 6-23 00:00: 00 2017-05-03 00:00:00 2017-05-03 11:29:34 [facility] Traumatic injury during in third trimester Traumatic injury during in third trimester Disease Resolve d 6-20 00:00: 00 2017-05-03 00:00:00 2017-05-03 11:29:31 [facility] Supervisio n of high risk , antepartum , second trimester Supervisio n of high risk , antepartum , second trimester Disease Resolve d 2016-0 4-03 00:00: 00 2017-05-03 00:00:00 2017-05-03 11:29:30 [facility] Anemia in , unspecifie d trimester Anemia in , unspecifie d trimester Disease Resolve d 0 6-02 00:00: 00 2017-04-09 00:00:00 2017-04-09 06:34:22 [facility] 30 weeks gestation of 30 weeks gestation of Disease Resolve d 24 00:00: 00 2017-03-15 00:00:00 2017-03-15 13:30:17 [facility] Nausea and vomiting in prior to 22 weeks gestation Nausea and vomiting in prior to 22 weeks gestation Disease Resolve d 10-24 00:00: 00 2017-01-10 00:00:00 2017-01-10 15:31:33 [facility] High risk , antepartum High risk , antepartum Disease Resolve d -01 00:00: 00 2016-11-26 00:00:00 2016-11-26 15:13:24 [facility] Obesity, unspecifie d Obesity, unspecifie d Disease Resolve d 2015-08 00:00: 00 2016-10-24 00:00:00 2016-10-24 15:33:36 [facility] Depo contracept ion Depo contracept ion Disease Resolve d 01-03 00:00: 00 2016-06-25 00:00:00 2016-06-25 14:08:02 [facility] UTI symptoms UTI symptoms Disease Resolve d 01-03 00:00: 00 2016-06-25 00:00:00 2016-06-25 14:08:06 [facility] Contracept bridgett management Contracept bridgett management Disease Resolve d 05-16 00:00: 00 2016-06-25 00:00:00 2022-03-11 00:37:43 [facility] Backache Backache Disease Resolve d 05-16 00:00: 00 2016-01-04 00:00:00 2022-03-11 00:37:43 [facility] Routine or child health check Routine infant or child health check Disease Resolve d 9- 00:00: 00 2015-05-16 00:00:00 2015-05-16 16:53:01 [facility] Impetigo Impetigo Disease Resolve d 4-10 00:00: 00 2015-05-16 00:00:00 2015-05-16 16:53:00 [facility] Other acute infections of external ear Other acute infections of external ear Disease Resolve d - 00:00: 00 2015-05-16 00:00:00 2015-05-16 16:52:58 [facility] Allergies, Adverse Reactions, Alerts Allergy Name Allergy Type Status Severity Reaction(s) Onset Date Inactive Date Treating Clinician Comments Source NO KNOWN ALLERGIE S Drug Class Active [facility] Social History Social Habit Start Date Stop Date Quantity Comments Source History SDOH Alcohol Frequency [facility] History SDOH Alcohol Std Drinks [facility] History SDOH Alcohol Binge [facility] History of Social function 2024-03-11 00:00:00 2024-03-11 00:00:00 [facility] Alcoholic beverage intake 2024-03-11 00:00:00 2024-03-11 00:00:00 Current drinker of alcohol (finding) [facility] Tobacco use and exposure 2023-03-05 00:00:00 2023-03-05 00:00:00 Smokeless tobacco non-user [facility] Alcohol intake 2023-03-05 00:00:00 2023-03-05 00:00:00 Current drinker of alcohol (finding) [facility] Exposure to SARS-CoV-2 (event) 2021-10-30 00:00:00 2021-11-29 14:04:00 Not sure [facility] Alcohol Comment 2021-11-29 00:00:00 2021-11-29 00:00:00 social [facility] Sex assigned at 1995 00:00:00 1995 00:00:00 [facility] Smoking Status Start Date Stop Date Source Never smoked tobacco [facility] Medications Ordered Medication Name Filled Medication Name Start Date Stop Date Current Medication? Ordering Clinician Indication Dosage Frequency Signature (SIG) Comments Components Source VIENVA 0.1-20 mg-mcg per tablet 04-13 00:00: 00 Yes [id number] 1{tbl} TAKE 1 TABLET BY MOUTH IN THE MORNING [facility] levonorgest rel-ethinyl estradiol 0.1-20 mg-mcg per tablet 03-11 00:00: 00 04-13 00:00 :00 No [id number] 1{tbl} Take 1 tablet by mouth in the morning. [facility] levonorgest rel-ethinyl estradiol 0.1-20 mg-mcg per tablet 03-05 00:00: 00 03-11 00:00 :00 No [id number] 1{tbl} Take 1 tablet by mouth in the morning. [facility] norethindro ne 0.35 mg tablet 03-05 00:00: 00 03-05 00:00 :00 No [id number] 1{tbl} Take 1 tablet by mouth in the morning. [facility] norethindro ne 0.35 mg tablet 6- 00:00: 00 03-05 00:00 :00 No [id number] 1{tbl} Take 1 tablet by mouth in the morning. [facility] norethindro ne 0.35 mg tablet 4- 00:00: 00 02-18 00:00 :00 No [id number] 1{tbl} Take 1 tablet by mouth in the morning. [facility] norethindro ne 0.35 mg tablet 3-31 00:00: 00 12-19 00:00 :00 No [id number] 1{tbl} Take 1 tablet by mouth in the morning. [facility] norethindro ne 0.35 mg tablet 11-29 00:00: 00 11-23 00:00 :00 No [id number] 1{tbl} Take 1 tablet by mouth daily. [facility] VITAFOL ULTRA 29 mg iron- 1 mg-200 mg Cap 09-04 00:00: 00 Yes TAKE ONE (1) CAPSULE(S) BY MOUTH ONCE A DAY. [facility] VITAFOL ULTRA 29 mg iron- 1 mg-200 mg Cap 09-04 00:00: 00 03-05 00:00 :00 No TAKE ONE (1) CAPSULE(S) BY MOUTH ONCE A DAY. [facility] vitamin w/FA tablet 08-31 00:00: 00 Yes [id number] 1{tbl} Take 1 tablet by mouth daily. [facility] ferrous sulfate 325 mg (65 mg iron) tablet 08-31 00:00: 00 Yes [id number] 325mg Take 1 tablet by mouth 2 (two) times daily. [facility] docusate calcium 240 mg capsule 08-31 00:00: 00 03-05 00:00 :00 No [id number] 240mg Take 1 capsule by mouth once daily as needed for Constipati on. [facility] ibuprofen 600 mg tablet 08-31 00:00: 00 03-05 00:00 :00 No [id number] 600mg Take 1 tablet by mouth every 6 (six) hours as needed (Pain). Take with food or milk. [facility] vitamin w/FA tablet 08-31 00:00: 00 03-05 00:00 :00 No [id number] 1{tbl} Take 1 tablet by mouth daily. [facility] Immunizations Ordered Immunization Name Filled Immunization Name Date Status Comments Source [facility] 2020-10-31 00:00:00 Completed [facility] HPV9 2020-10-31 00:00:00 Completed [facility] HPV9 2020-10-31 00:00:00 Completed [facility] HPV9 2020-10-31 00:00:00 Completed [facility] HPV9 2020-10-31 00:00:00 Completed [facility] HPV9 2020-10-31 00:00:00 Completed [facility] HPV9 2020-10-31 00:00:00 Completed [facility] HPV9 2020-10-31 00:00:00 Completed [facility] HPV9 2020-10-31 00:00:00 Completed [facility] HPV9 2020-10-31 00:00:00 Completed [facility] HPV9 2020-10-31 00:00:00 Completed [facility] HPV9 2020-10-31 00:00:00 Completed [facility] TDAP 2020-06-23 00:00:00 Completed [facility] TDAP 2020-06-23 00:00:00 Completed [facility] TDAP 2020-06-23 00:00:00 Completed [facility] TDAP 2020-06-23 00:00:00 Completed [facility] TDAP 2020-06-23 00:00:00 Completed [facility] TDAP 2020-06-23 00:00:00 Completed [facility] TDAP 2020-06-23 00:00:00 Completed [facility] TDAP 2020-06-23 00:00:00 Completed [facility] TDAP 2020-06-23 00:00:00 Completed [facility] TDAP 2020-06-23 00:00:00 Completed [facility] TDAP 2020-06-23 00:00:00 Completed [facility] TDAP 2020-06-23 00:00:00 Completed [facility] HPV9 2017-04-09 00:00:00 Completed [facility] HPV9 2017-04-09 00:00:00 Completed [facility] HPV9 2017-04-09 00:00:00 Completed [facility] HPV9 2017-04-09 00:00:00 Completed [facility] HPV9 2017-04-09 00:00:00 Completed [facility] HPV9 2017-04-09 00:00:00 Completed [facility] HPV9 2017-04-09 00:00:00 Completed [facility] HPV9 2017-04-09 00:00:00 Completed [facility] HPV9 2017-04-09 00:00:00 Completed [facility] HPV9 2017-04-09 00:00:00 Completed [facility] HPV9 2017-04-09 00:00:00 Completed [facility] HPV9 2017-04-09 00:00:00 Completed [facility] TDAP 2017-01-24 00:00:00 Completed [facility] TDAP 2017-01-24 00:00:00 Completed [facility] TDAP 2017-01-24 00:00:00 Completed [facility] TDAP 2017-01-24 00:00:00 Completed [facility] TDAP 2017-01-24 00:00:00 Completed [facility] TDAP 2017-01-24 00:00:00 Completed [facility] TDAP 2017-01-24 00:00:00 Completed [facility] TDAP 2017-01-24 00:00:00 Completed [facility] TDAP 2017-01-24 00:00:00 Completed [facility] TDAP 2017-01-24 00:00:00 Completed [facility] TDAP 2017-01-24 00:00:00 Completed [facility] TDAP 2017-01-24 00:00:00 Completed [facility] TDAP 2011-08-26 00:00:00 Completed [facility] TDAP 2011-08-26 00:00:00 Completed [facility] TDAP 2011-08-26 00:00:00 Completed [facility] TDAP 2011-08-26 00:00:00 Completed [facility] TDAP 2011-08-26 00:00:00 Completed [facility] TDAP 2011-08-26 00:00:00 Completed [facility] TDAP 2011-08-26 00:00:00 Completed [facility] TDAP 2011-08-26 00:00:00 Completed [facility] TDAP 2011-08-26 00:00:00 Completed [facility] TDAP 2011-08-26 00:00:00 Completed [facility] TDAP 2011-08-26 00:00:00 Completed [facility] TDAP 2011-08-26 00:00:00 Completed [facility] HEPATITIS A 2006-10-31 00:00:00 Completed [facility] HPV 2006-10-31 00:00:00 Completed [facility] Varicella (varivax)(chicken pox) 2006-10-31 00:00:00 Completed [facility] HEPATITIS A 2006-10-31 00:00:00 Completed [facility] HPV 2006-10-31 00:00:00 Completed [facility] Varicella (varivax)(chicken pox) 2006-10-31 00:00:00 Completed [facility] TDAP Unknown Completed [facility] TDAP Unknown Completed [facility] HPV9 Unknown Completed [facility] TDAP Unknown Completed [facility] TDAP Unknown Completed [facility] HPV9 Unknown Completed [facility] TDAP Unknown Completed [facility] HPV9 Unknown Completed [facility] TDAP Unknown Completed [facility] TDAP Unknown Completed [facility] HPV9 Unknown Completed [facility] TDAP Unknown Completed [facility] HPV9 Unknown Completed [facility] TDAP Unknown Completed [facility] TDAP Unknown Completed [facility] HPV9 Unknown Completed [facility] TDAP Unknown Completed [facility] HPV9 Unknown Completed [facility] TDAP Unknown Completed [facility] TDAP Unknown Completed [facility] HPV9 Unknown Completed [facility] TDAP Unknown Completed [facility] HPV9 Unknown Completed [facility] TDAP Unknown Completed [facility] TDAP Unknown Completed [facility] HPV9 Unknown Completed [facility] TDAP Unknown Completed [facility] HPV9 Unknown Completed [facility] TDAP Unknown Completed [facility] TDAP Unknown Completed [facility] HPV9 Unknown Completed [facility] TDAP Unknown Completed [facility] HPV9 Unknown Completed [facility] TDAP Unknown Completed [facility] TDAP Unknown Completed [facility] HPV9 Unknown Completed [facility] TDAP Unknown Completed [facility] HPV9 Unknown Completed [facility] TDAP Unknown Completed [facility] TDAP Unknown Completed [facility] HPV9 Unknown Completed [facility] TDAP Unknown Completed [facility] HPV9 Unknown Completed [facility] Vital Signs Vital Name Observation Time Observation Value Comments S ource Systolic blood pressure 2024-03-11 18:07:00 131 mm[Hg] [facility] Diastolic blood pressure 2024-03-11 18:07:00 69 mm[Hg] [facility] Heart rate 2024-03-11 18:07:00 93 /min [facility] Body temperature 2024-03-11 18:07:00 36.67 Hannah [facility] Respiratory rate 2024-03-11 18:07:00 18 /min [facility] Body height 2024-03-11 18:07:00 149.9 cm [facility] Body weight 2024-03-11 18:07:00 88.633 kg [facility] BMI 2024-03-11 18:07:00 39.47 kg/m2 [facility] Systolic blood pressure 2024-01-30 13:01:00 115 mm[Hg] [facility] Diastolic blood pressure 2024-01-30 13:01:00 70 mm[Hg] [facility] Heart rate 2024-01-30 13:01:00 78 /min [facility] Body temperature 2024-01-30 13:01:00 36.06 Hannah [facility] Respiratory rate 2024-01-30 13:01:00 18 /min [facility] Body height 2024-01-30 13:01:00 149.9 cm [facility] Body weight 2024-01-30 13:01:00 87.272 kg [facility] BMI 2024-01-30 13:01:00 38.86 kg/m2 [facility] Systolic blood pressure 2023-06-05 18:32:00 112 mm[Hg] [facility] Diastolic blood pressure 2023-06-05 18:32:00 66 mm[Hg] [facility] Heart rate 2023-06-05 18:32:00 76 /min [facility] Body temperature 2023-06-05 18:32:00 36.39 Hannah [facility] Respiratory rate 2023-06-05 18:32:00 18 /min [facility] Body height 2023-06-05 18:32:00 149.9 cm [facility] Body weight 2023-06-05 18:32:00 85.276 kg [facility] BMI 2023-06-05 18:32:00 37.97 kg/m2 [facility] Systolic blood pressure 2023-03-05 20:10:00 111 mm[Hg] [facility] Diastolic blood pressure 2023-03-05 20:10:00 63 mm[Hg] [facility] Heart rate 2023-03-05 20:10:00 84 /[facility] Body temperature 2023-03-05 20:10:00 36.78 Hannah [facility] Respiratory rate 2023-03-05 20:10:00 18 /min [facility] Body height 2023-03-05 20:10:00 149.9 cm [facility] Body weight 2023-03-05 20:10:00 87.714 kg [facility] BMI 2023-03-05 20:10:00 39.06 kg/m2 [facility] Procedures Procedure Date / Time Performed Performing Clinician Source THYROID STIMULATING HORMONE 2024-03-11 19:06:[address] 2024-03-11 19:06:00 David Lentz [facility] GC & CHLAMYDIA AMPLIFIED ASSAY 2024-03-11 19:06:00 [facility] HIV 1/2 AG-AB WITH REFLEX 2024-03-11 19:06:00 [facility] SYPHILIS IGG/IGM 2024-03-11 19:06:00 [facility] 2023-06-05 18:34:00 Mick Hopkins [facility] GALV ONLY - VAGINAL PATHOGENS BY NUCLEIC ACID TESTING 2023-03-05 21:20:00 Suellen Richardson [facility] GC & CHLAMYDIA AMPLIFIED ASSAY 2023-03-05 20:56:00 Suellen Richardson [facility] TRICHOMONAS AMPLIFIED ASSAY 2023-03-05 20:56:00 Suellen Richardson [facility] PAP SMEAR-LIQUID BASED-CP 2023-03-05 20:56:00 Suellen Richardson [facility] IMMTRAC2 CONSENT 2023-03-05 05:01:00 Doctor Unas signed, [place] [facility] NOTICE OF PRIVACY PRACTICES 2023-01-29 19:01:22 Doctor Unassigned, [place] [facility] CONSENT/REFUSAL FOR DIAGNOSIS AND TREATMENT 2023-01-29 19:00:53 Doctor Unassigned, [place] [facility] ASSIGNMENT OF BENEFITS 2023-01-29 19:00:26 Docto r Unassigned, [place] [facility] Encounters Start Date/Time End Date/Time Encounter Type Admission Type Attending [facility] Facility Care Department Encounter ID Source 2021-06-24 14:58:50 Outpatient [facility] [id number] [facility] 2024-05-05 09:00:00 2024-05-05 09:00:00 Outpatient R [facility] [id number] [facility] 2024-05-05 00:00:00 2024-05-05 08:57:11 David Jeffery [facility] .2.840.114 350.1.13.10 4.2.7.2.686 [id number] 107 [id number] [facility] 2024-04-13 13:08:36 2024-04-13 13:08:36 Outpatient [facility] [id number] [employer] 2024-04-12 00:00:00 2024-04-13 08:57:15 David Jeffery [facility] .840.114 350.1.13.10 4.2.7.2.686 [id number] 107 [id number] [facility] 2024-02-11 00:00:00 2024-03-14 18:18:26 Patient Secure Msg David Lentz [facility] 1.840.114 350.1.13.10 4.2.7.2.686 [id number] 107 [id number] [facility] 2024-03-11 13:15:00 2024-03-11 14:06:37 Outpatient R DAVID LENTZ [facility] [id number] [facility] 2024-03-11 13:15:00 2024-03-11 14:06:37 Office Visit David Lentz [facility] 1.0.114 350.1.13.10 4.2.7.2.686 [id number] 107 [id number] [facility] 2024-01-30 08:15:00 2024-01-30 08:36:00 Outpatient R DAVID LENTZ [facility] [id number] [facility] 2024-01-30 08:15:00 2024-01-30 08:36:00 Office Visit David Lentz Damilola C [facility] 1..114 350.1.13.10 4.2.7.2.686 [id number] 107 [id number] [facility] 2024-01-30 06:45:00 2024-01-30 06:45:00 Outpatient R DAVID LENTZ [facility] [id number] [facility] 2023-06-05 13:30:00 2023-06-05 13:45:00 Office Visit Tricia Hopkins [facility] 1.0.114 350.1.13.10 4.2.7.2.686 [id number] 107 [id number] [facility] 2023-06-05 13:30:00 2023-06-05 13:30:00 Outpatient R TRICIA HOPKINS [facility] [id number] [facility] 2023-03-05 14:45:00 2023-03-05 16:06:45 Outpatient R SUELLEN RICHARDSON [facility] [id number] [facility] 2023-03-05 14:45:00 2023-03-05 16:06:45 Office Visit Suellen Richardson [facility] 1.0.114 350.1.13.10 4.2.7.2.686 [id number] 107 [id number] [facility] 2023-03-05 00:00:00 2023-03-05 00:00:00 Orders Only Doctor Unassigned, [place] [facility] 1.840.114 350.1.13.10 4.2.7.2.686 [id number] [facility] 2023-02-18 00:00:00 2023-02-18 00:00:00 Telephone Tricia Hopkins [facility] 1.840.114 350.1.13.10 4.2.7.2.686 [id number] [facility] 2023-02-17 00:00:00 2023-02-17 00:00:00 Refill Tricia Hopkins [facility] 1.0.114 350.1.13.10 4.2.7.2.686 [id number] 107 [id number] [facility] 2023-01-29 14:15:00 2023-01-29 14:15:00 Outpatient R TRICIA HOPKINS [facility] [id number] [facility] 2023-01-29 00:00:00 2023-01-29 00:00:00 Orders Only Doctor Unassigned, [place] [facility] 1.2.840.114 350.1.13.10 4.2.7.2.686 [id number] [facility] 2023-01-29 00:00:00 2023-01-29 00:00:00 Telephone Marlo Bonilla [facility] 1.2.840.114 350.1.13.10 4.2.7.2.686 [id number] 107 [id number] [facility] 2022-12-19 00:00:00 2022-12-19 00:00:00 Refill Tricia Hopkins [facility] 1.2.840.114 350.1.13.10 4.2.7.2.686 [id number] 107 [id number] [facility] 2022-12-19 00:00:00 2022-12-19 00:00:00 Telephone Tricia Hopkins [facility] 1.2.840.114 350.1.13.10 4.2.7.2.686 [id number] 107 [id number] [facility] 2022-11-23 00:00:00 2022-11-23 00:00:00 Telephone Tricia Hopkins [facility] 1.2.840.114 350.1.13.10 4.2.7.2.686 [id number] 107 [id number] [facility] 2021-12-11 00:00:00 2021-12-11 00:00:00 Telephone Tricia Hopkins [facility] 1.2.840.114 350.1.13.10 4.2.7.2.686 [id number] 107 [id number] [facility] 2021-12-08 00:00:00 2021-12-08 00:00:00 Telephone Tricia Hopkins [facility] 1.2840.114 350.1.13.10 4.2.7.2.686 [id number] 107 [id number] [facility] 2021-11-29 14:45:00 2021-11-29 15:34:36 Outpatient R TRICIA HOPKINS [facility] [id number] [facility] 2021-11-29 14:45:00 2021-11-29 15:34:36 Office Visit Tricia Hopkins [facility] 1.2840.114 350.1.13.10 4.2.7.2.686 [id number] 107 [id number] [facility] 2021-11-29 14:45:00 2021-11-29 15:34:36 Outpatient R TRICIA HOPKINS [facility] [id number] [facility] 2021-11-27 00:00:00 2021-11-27 00:00:00 Telephone Marlo Bonilla [facility] 1..114 350.1.13.10 4.2.7.2.686 [id number] 107 [id number] [facility] 2021-10-30 00:00:00 2021-10-30 00:00:00 Refill Tricia Hopkins [facility] 1.20.114 350.1.13.10 4.2.7.2.686 [id number] [facility] 2021-04-28 00:00:00 2021-04-28 00:00:00 Telephone Marlo Bonilla [facility] 1.2840.114 350.1.13.10 4.2.7.2.686 [id number] 107 [id number] [facility] 2021-04-25 11:05:30 2021-04-25 11:24:54 Office Visit BonillaMarlo [facility] 1.2.840.114 350.1.13.10 4.2.7.2.686 [id number] 107 [id number] [facility] 2021-04-25 10:45:00 2021-04-25 10:45:00 Outpatient R IRENEMARLO [facility] [id number] [facility] 2021-04-25 00:00:00 2021-04-25 00:00:00 Orders Only Doctor Unassigned, [place] [facility] 1..840.114 350.1.13.10 4.2.7.2.686 [id number] [id number] [facility] 2021-04-25 00:00:00 2021-04-25 00:00:00 Letter (Out) Bonilla, Marlo Irwin [facility] 1..840.114 350.1.13.10 4.2.7.2.686 [id number] 107 [id number] [facility] 2021-02-03 13:00:00 2021-02-03 13:00:00 Outpatient R TRICIA HOPKINS [facility] [id number] [facility] 2021-01-31 15:15:00 2021-01-31 15:15:00 Outpatient R TRICIA HOPKINS [facility] [id number] [facility] 2020-10-31 16:00:00 2020-10-31 16:00:00 Outpatient R TRICIA HOPKINS [facility] [id number] [facility] 2020-10-31 16:00:00 2020-10-31 16:00:00 Outpatient R TRICIA HOPKINS [facility] [id number] [facility] 2020-10-31 15:30:00 2020-10-31 15:30:00 Outpatient R TRICIA HOPKINS [facility] [id number] [facility] 2020-10-28 08:30:00 2020-10-28 08:30:00 Outpatient R TRICIA HOPKINS [facility] [id number] [facility] 2020-10-20 13:15:00 2020-10-20 13:15:00 Outpatient R AKINSITRICIA ALBA [facility] [id number] [facility] 2020-10-14 13:15:00 2020-10-14 13:15:00 Outpatient R AYESHASITRICIA ALBA [facility] [id number] [facility] 2020-09-23 15:30:00 2020-09-23 15:30:00 Outpatient R RENETTAANJALITRICIA [facility] [id number] [facility] 2020-08-30 14:45:00 2020-08-30 14:45:00 Outpatient R NAJMA PAREDES [facility] [id number] [facility] 2020-08-23 12:45:00 2020-08-23 12:45:00 Outpatient R MARLO BONILLA [facility] [id number] [facility] 2020-08-16 13:15:00 2020-08-16 13:15:00 Outpatient NAJMA CLIFFORD [facility] [id number] [facility] 2020-08-02 11:00:00 2020-08-02 11:00:00 Outpatient NAJMA CLIFFORD [facility] [id number] [facility] 2020-07-19 10:45:00 2020-07-19 10:45:00 Outpatient NAJMA CLIFFORD [facility] [id number] [facility] 2020-07-15 15:00:00 2020-07-15 15:00:00 Outpatient P [facility] [id number] [facility] 2020-07-07 08:45:2020-07-07 08:45:00 Outpatient Dc PAREDSENAJMA [facility] [id number] [facility] 2020-06-23 08:15:00 2020-06-23 08:15:00 Outpatient Dc PAREDESNAJMA [facility] [id number] [facility] 2020-06-09 10:45:00 2020-06-09 10:45:00 Outpatient Dc PAREDESNAJMA [facility] [id number] [facility] 2020-05-19 11:00:00 2020-05-19 11:00:00 Outpatient Dc PAREDESNAJMA [facility] [id number] [facility] 2020-05-09 11:00:00 2020-05-09 11:00:00 Outpatient P [facility] [id number] [facility] 2020-04-29 14:00:00 2020-04-29 14:00:00 Outpatient P [facility] [id number] [facility] 2020-04-26 16:00:00 2020-04-26 16:00:00 Outpatient Dc PAREDESNAJMA [facility] [id number] [facility] 2020-04-22 11:00:00 2020-04-22 11:00:00 Outpatient Dc PAREDESNAJMA [facility] [id number] [facility] 2020-04-21 14:15:00 2020-04-21 14:15:00 Outpatient Dc PAREDESSOLOMONNAJMA [facility] [id number] [facility] 2020-03-22 14:15:00 2020-03-22 14:15:00 Outpatient Dc PAREDES NAJMA [facility] [id number] [facility] 2020-03-18 13:00:00 2020-03-18 13:00:00 Outpatient P [facility] [id number] [facility] 2020-03-17 14:15:00 2020-03-17 14:15:00 Outpatient Dc PAREDES NAJMA [facility] [id number] [facility] 2020-02-23 00:00:00 2020-02-23 00:00:00 Patient Secure Msg Doctor Unassigned, [place] [facility] 1.2.840.114 350.1.13.10 4.2.7.2.686 [id number] 107 [id number] [facility] 2020-02-19 14:00:00 2020-02-19 14:00:00 Outpatient R TRICIA HOPKINS [facility] [id number] [facility] 2019-11-27 14:00:00 2019-11-27 14:00:00 Outpatient R MARLO BONILLA [facility] [id number] [facility] Results Test Description Test Time Test Comments Results Result Co mments Source [id number] 18:35:00* Test Item Value Reference Range Interpretation Comme nts POCT PREG (test code = 1605) Negative On board controls acceptable with C Line (test code = 3574) Yes POCT PREG LOT # (test code = 3575) POCT PREG TEST DATE ( test code = 3576) [facility] Notes Date/Time Note Provider Source 2024-05-05 08:34:29 Concha Kumar is a 28 year old female Patient called to request refill for Vienva Please contact pt at [phone] (home) [id number] - [place], [place] - [address] [facility]
[2024-05-20] MEDS ORDERED: KETOROLAC 30 MG/ML INJ ONE (03:34)
[2024-05-20 03:56] LABS: Hemoglobin 12.3 g/dL (12.0-15.0); MCH 30.7 pg (27.0-35.0)
[2024-05-20 04:02] LABS: Absolute Eosinophils 0.1 K/uL (0-0.5); Absolute Lymphocytes (CBC) 3.8 K/uL (0.7-4.9); Absolute Monocytes 0.8 K/uL (0.1-1.3); Absolute Neutrophil 5.2 K/uL (1.8-8.0); Albumin 3.2 g/dL (3.4-5.0); Albumin/Globulin Ratio 0.7 (1.1-1.8); Anion Gap 9.6 mEq/L (5.0-15.0); Basophils % 0.3 % (0-1.3); Bilirubin Total 0.3 mg/dL (0.2-1.0); Eosinophils % 1.2 % (0-4.4); Globulin 4.4 g/dL (2.3-3.5); Hematocrit 36.2 % (36.0-45.0); Lymphocytes % 37.9 % (15.3-44.8); MCV 90.2 fL (80-100); MPV 7.7 fL (7.6-11.3); Neutrophils % 52.6 % (41.7-73.7); Nucleated Red Blood Cells % 0.1 % (0-0); Platelets 318 thou/uL (152-406); Potassium 3.6 mEq/L (3.5-5.1); Protein, Total 7.6 g/dL (6.4-8.2); RBC Red Blood Cell Count 4.01 M/uL (3.86-4.86); Red Cell Distribution Width 13.7 % (12.1-15.2)
[2024-05-20 04:12] LABS: Specific Gravity 1.013 (1.005-1.030); Sqamous Epithelial <5 /HPF (None Seen); Urine Bacteria <20 /HPF (<20); Urine Bilirubin NEGATIVE (Negative); Urine Blood Negative (Negative); Urine Clarity Turbid (Clear); Urine Color Colorless (Yellow); Urine Culture Reflex Order NOT NEEDED; Urine Glucose NEGATIVE (Negative); Urine Ketones NEGATIVE (Negative); Urine Microscopic Reflex YN ORDER UMIC; Urine Nitrite NEGATIVE (Negative); Urine Protein NEGATIVE (Negative); Urine RBC None Seen /HPF (None Seen); Urine Urobilinogen Normal (Normal); Urine WBC <5 /HPF (<5); Urine pH 6.5 (5.0-7.0)
[2024-05-20 04:13] LABS: Specific Gravity 1.013 (1.005-1.030)
--- NOTE | 2024-05-20 05:03 | RAD REPORT ---
CLINICAL HISTORY: Abdominal pain. COMPARISON: US Abdomen 10/05/2016. TECHNIQUE: CT ABDOMEN PELVIS WITH IV CONTRAST on 05/20/2024 3:25 AM CDT This exam was performed according to our departmental dose-optimization program, which includes autom ated exposure control, adjustment of the mA and/or kV according to patient size and/or use of iterative reconstruction technique. FINDINGS: Lower lungs are clear. Abdomen: The liver is normal in appearance. There is no biliary dilatation. Gallbladder is decompress ed. The pancreas and spleen are normal in appearance. Adrenal glands are normal. There is a 3 mm upper pole left renal calculus. There is a 2 mm upper pole right renal calculus. There is no hydronep hrosis. Abdominal aorta is normal in course and caliber without aneurysm. There is no free air. There is no r etroperitoneal adenopathy. Pelvis: There is no bowel obstruction. Urinary bladder is unremarkable. There is small amount of free pelvic fluid. Appendix is normal. Uterus is normal in size. Skeleton: There are no acute osseous findings. No suspicious bony lesions. IMPRESSION: Minimal bilateral nephrolithiasis without hydronephrosis. Electronically signed by: Milton Mckenzie MD 05/20/2024 04:59 AM CDT RP Due to temporary technical issues with the PACS/Contractually reporting system, reports are being reyna d by the in-house radiologist without review as a courtesy to ensure prompt reporting the interpreting radiologist is fully responsible for the content of the report. Transcribed Date/Time: 05/20/2024 5:03 AM
--- NOTE | 2024-05-20 05:09 | EDPHYS ---
Physician Documentation [facility] Name: Carlene Kumar Age: 28 yrs Sex: Female : 1995 Arrival Date: 05/20/2024 Time: 03:12 Bed 5 Private MD: ED Physician Mina Santos HPI: 05/20 04:06 This 28 yrs old Female presents to ER via Ambulatory with complaints of sp3 Abdominal Pain. 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 This all occurred over the last 48 hours. Pain prior to arrival got progressively worse and she elected to come to the ED. She denies any other symptoms including fever, URI symptoms, chest pain, back pain, shortness of breath, vomiting, diarrhea, syncope, near syncope, rash, or any other signs or symptoms on ROS at this time.. 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 - Infectious Disease History:: Denies. - Social history:: Smoking status: Patient denies any tobacco usage or history of. ROS: 04:06 Constitutional: Negative for fever, chills, and weight loss, Eyes: Negative for injury, sp3 pain, redness, and discharge, ENT: Negative for injury, pain, and discharge, Neck: Negative for injury, pain, and swelling, Cardiovascular: Negative for chest pain, palpitations, and edema, Respiratory: Negative for shortness of breath, cough, wheezing, and pleuritic chest pain, Back: Negative for injury and pain, : Negative for injury, bleeding, discharge, and swelling, MS/Extremity: Negative for injury and deformity, Skin: Negative for injury, rash, and discoloration, Neuro: Negative for headache, weakness, numbness, tingling, and seizure, Psych: Negative for depression, anxiety, suicide ideation, homicidal ideation, and hallucinations, Allergy/Immunology: Negative for hives, rash, and allergies, Endocrine: Negative for neck swelling, polydipsia, polyuria, polyphagia, and marked weight changes, Hematologic/Lymphatic: Negative for swollen nodes, abnormal bleeding, and unusual bruising, 04:06 All other systems are negative, Exam: 04:07 Constitutional: This is a well developed, well nourished patient who is awake, alert, sp3 and in no acute distress. Head/Face: Normocephalic, atraumatic. Eyes: Pupils equal round and reactive to light, extra-ocular motions intact. Lids and lashes normal. Conjunctiva and sclera are non-icteric and not injected. Cornea within normal limits. Periorbital areas with no swelling, redness, or edema. Neck: Trachea midline, no thyromegaly or masses palpated, and no cervical lymphadenopathy. Supple, full range of motion without nuchal rigidity, or vertebral point tenderness. No Meningismus. Chest/axilla: Normal chest wall appearance and motion. Nontender with no deformity. No lesions are appreciated. Cardiovascular: Regular rate and rhythm with a normal S1 and S2. No gallops, murmurs, or rubs. Normal PMI, no JVD. No pulse deficits. Respiratory: Lungs have equal breath sounds bilaterally, clear to auscultation and percussion. No rales, rhonchi or wheezes noted. No increased work of breathing, no retractions or nasal flaring. Back: No spinal tenderness. No costovertebral tenderness. Full range of motion. Skin: Warm, dry with normal turgor. Normal color with no rashes, no lesions, and no evidence of cellulitis. MS/ Extremity: Pulses equal, no cyanosis. Neurovascular intact. Full, normal range of motion. Neuro: Awake and alert, GCS 15, oriented to person, place, time, and situation. Cranial nerves II-XII grossly intact. Motor strength 5/5 in all extremities. Sensory grossly intact. Cerebellar exam normal. Normal gait. Psych: Awake, alert, with orientation to person, place and time. Behavior, mood, and affect are within normal limits. 04:07 Abdomen/GI: Patient with diffuse abdominal pain to palpation in the musculature as well as deeper. No peritoneal signs, rebound or guarding noted., Vital Signs: 03:29 BP 110 / 69; Pulse 88; Resp 15; Temp 98.6; Pulse Ox 100% ; Weight 86.18 kg; Height 4 vc1 ft. 11 in. ; Pain 5/10; 04:48 BP 114 / 76; Pulse 78; Resp 17; Temp 98.6; Pulse Ox 98% ; Pain 4/10; bm8 05:16 BP 95 / 57; Pulse 81; Resp 17; Temp 98.6; Pulse Ox 98% ; Pain 2/10; bm8 03:29 Body Mass Index 38.37 (86.18 kg, 149.86 cm) vc1 03:29 Pain Scale: Adult vc1 04:48 Pain Scale: Adult bm8 05:16 Pain Scale: Adult bm8 [place] Coma Score: 03:43 Eye Response: spontaneous(4). Motor Response: obeys commands(6). Verbal Response: bm8 oriented(5). Total: 15. 04:48 Eye Response: spontaneous(4). Motor Response: obeys commands(6). Verbal Response: bm8 oriented(5). Total: 15. 05:16 Eye Response: spontaneous(4). Motor Response: obeys commands(6). Verbal Response: bm8 oriented(5). Total: 15. MDM: 03:19 Patient medically screened. sp3 04:07 Data reviewed: vital signs, nurses notes, lab test result(s), radiologic studies. ED sp3 course: 28-year-old female with abdominal pain. 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 Will obtain CT scan of the abdomen pelvis with IV contrast, laboratory values and general supportive care. Ketorolac 50 mg IV for pain control. Leading diagnosis is muscular strain given history. Disposition pending workup and patient course with further intervention as indicated.. 05:08 ED course: Workup negative including all labs, urine and CT scan of the abdomen and sp3 pelvis. We will safely discharge patient home at this time with abdominal wall strain.. 05/20 03:25 Order name: CBC with Diff; Complete Time: 04:14 sp3 05/20 03:25 Order name: CMP; Complete Time: 04:14 sp3 05/20 03:25 Order name: Lipase; Complete Time: 04:14 sp3 05/20 03:25 Order name: Test, Urine; Complete Time: 04:14 sp3 05/20 03:25 Order name: Urinalysis w/ reflexes; Complete Time: 04:14 sp3 05/20 03:25 Order name: CT Abd/Pelvis - IV Contrast Only; Complete Time: 05:07 sp3 05/20 03:25 Order name: IV Saline Lock; Complete Time: 03:41 sp3 05/20 03:25 Order name: Labs collected and sent; Complete Time: 03:41 sp3 Administered Medications: 04:26 Drug: TORadol - Ketorolac IVP 15 mg IVP once Route: IVP; Site: right antecubital; bm8 04:49 Follow up: Response: No adverse reaction bm8 Disposition Summary: 05/20/24 05:08 Discharge Ordered Notes: Location: Home sp3 Condition: Stable sp3 Diagnosis - Abdominal wall strain sp3 Followup: sp3 - With: Private Physician - When: Upon discharge from the Emergency Department - Reason: Continuance of care Discharge Instructions: - Discharge Summary Sheet sp3 - Abdominal Pain, Adult sp3 - Form - Excuse from Work, School, or Physical Activity bm8 Forms: - Medication Reconciliation Form sp3 - Antibiotic Education sp3 - Prescription Opioid Use sp3 - Patient Portal Instructions sp3 - Leadership Thank You Letter sp3 Prescriptions: - Diclofenac Sodium 75 mg Oral Tablet Sustained Release - take 1 tablet ORAL route 2 times per day; 30 tablet; Refills: 0, Product sp3 Selection Permitted Signatures: Dispatcher [employer] Mina Garcia MD MD sp3 Mikal Nolasco, RN RN bm8
--- NOTE | 2024-05-20 05:09 | ER ---
Nurse's Notes [facility] Name: Carlene Kumar Age: 28 yrs Sex: Female : 1995 Arrival Date: 05/20/2024 Time: 03:12 Bed 5 Private MD: Diagnosis: Abdominal wall strain Presentation: 05/20 03:29 Chief complaint: Patient states: I moved my sons bunk bed the other day and now I am vc1 having upper and lower abdominal pain. Tonight it was so bad that I couldn't get back in bed and it took my breath away. Coronavirus screen: Client denies travel out of the [place] in the last 14 days. At this time, the client does not indicate any symptoms associated with coronavirus-19. Ebola Screen: Patient negative for fever greater than or equal to 101.5 degrees Fahrenheit, and additional compatible Ebola Virus Disease symptoms Patient denies exposure to infectious person. Patient denies travel to an Ebola-affected area in the 21 days before illness onset. No symptoms or risks identified at this time. Initial Sepsis Screen: Does the patient meet any 2 criteria? No. Patient's initial sepsis screen is negative. Does the patient have a suspected source of infection? No. Patient's initial sepsis screen is negative. Risk Assessment: Do you want to hurt yourself or someone else? Patient reports no desire to harm self or others. Onset of symptoms was May 15, 2024. 03:29 Method Of Arrival: Ambulatory vc1 03:29 Acuity: CAYLA 3 vc1 Triage Assessment: 03:45 General: Appears in no apparent distress. uncomfortable, Behavior is calm, cooperative, vc1 appropriate for age. Pain: Complains of pain in left lower quadrant and right lower quadrant and left upper quadrant and right upper quadrant Pain does not radiate. Pain currently is 5 out of 10 on a pain scale. at worst was 10 out of 10 on a pain scale. Quality of pain is described as sharp, Pain began suddenly, 2-3 days ago. Is continuous, Aggravated by increased activity, repositioning, Noted to be grimacing, resistant to movement. EENT: No deficits noted. No signs and/or symptoms were reported regarding the EENT system. Neuro: Level of Consciousness is awake, alert, obeys commands, Oriented to person, place, time, situation, Appropriate for age. Respiratory: Airway is patent Respiratory effort is even, unlabored, Respiratory pattern is regular, symmetrical. GI: Abd is soft Abdomen is tender to palpation X 4 quads. Reports lower abdominal pain, upper abdominal pain. Derm: Skin is intact, is healthy with good turgor, Skin is dry, Skin is normal, Skin temperature is warm. Musculoskeletal: Reports pain in abdomen. 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 - Infectious Disease History:: Denies. - Social history:: Smoking status: Patient denies any tobacco usage or history of. Screenin:43 [facility] ED Fall Risk Assessment (Adult) History of falling in the last 3 months, bm8 including since admission No falls in past 3 months (0 pts) Confusion or Disorientation No (0 pts) Intoxicated or Sedated No (0 pts) Impaired Gait No (0 pts) Mobility Assist Device Used No (0 pt) Altered Elimination Yes (1 pt) Score/Fall Risk Level 0 - 2 = Low Risk Oriented to surroundings, Maintained a safe environment, Educated pt \T\ family on fall prevention, incl call for assistance when getting out of bed, Assessed \T\ reinforced patient's understanding of fall precautions, Provided non-skid footwear, Hourly rounding (assess needs \T\ fall precautionary measures) done, Used ambulatory aids as needed (educated on \T\ assisted with), Used gait belt as appropriate. Abuse screen: Denies threats or abuse. Nutritional screening: No deficits noted. Tuberculosis screening: No symptoms or risk factors identified. Assessment: 03:41 Reassessment: Patient appears in no apparent distress at this time. Patient and/or bm8 family updated on plan of care and expected duration. Pain level reassessed. Patient is alert, oriented x 3, equal unlabored respirations, skin warm/dry/pink. General: Appears in no apparent distress. comfortable, Behavior is calm, cooperative, appropriate for age. Pain: Complains of pain in abdomen Pain currently is 6 out of 10 on a pain scale. Neuro: No deficits noted. Level of Consciousness is awake, alert, obeys commands, Oriented to person, place, time, situation, Appropriate for age. Cardiovascular: Denies chest pain, Capillary refill < 3 seconds in bilateral fingers toes Patient's skin is warm and dry. Respiratory: Airway is patent Respiratory effort is even, unlabored, Respiratory pattern is regular, symmetrical. GI: Abdomen is flat, non-distended, Bowel sounds present X 4 quads. Abdomen is tender to palpation in right upper quadrant, left upper quadrant, right lower quadrant and left lower quadrant Reports lower abdominal pain, upper abdominal pain, Pain is 6 out of 10 on a pain scale. : No signs and/or symptoms were reported regarding the genitourinary system. EENT: No signs and/or symptoms were reported regarding the EENT system. Derm: No signs and/or symptoms reported regarding the dermatologic system. Musculoskeletal: No signs and/or symptoms reported regarding the musculoskeletal system. 04:48 Reassessment: Patient appears in no apparent distress at this time. Patient and/or bm8 family updated on plan of care and expected duration. Pain level reassessed. Patient is alert, oriented x 3, equal unlabored respirations, skin warm/dry/pink. Patient states feeling better. Patient states symptoms have improved. Pain: Pain currently is 4 out of 10 on a pain scale. 05:16 Reassessment: Patient appears in no apparent distress at this time. No changes from bm8 previously documented assessment. Patient and/or family updated on plan of care and expected duration. Pain level reassessed. Patient is alert, oriented x 3, equal unlabored respirations, skin warm/dry/pink. Vital Signs: 03:29 BP 110 / 69; Pulse 88; Resp 15; Temp 98.6; Pulse Ox 100% ; Weight 86.18 kg; Height 4 vc1 ft. 11 in. ; Pain 5/10; 04:48 BP 114 / 76; Pulse 78; Resp 17; Temp 98.6; Pulse Ox 98% ; Pain 4/10; bm8 05:16 BP 95 / 57; Pulse 81; Resp 17; Temp 98.6; Pulse Ox 98% ; Pain 2/10; bm8 03:29 Body Mass Index 38.37 (86.18 kg, 149.86 cm) vc1 03:29 Pain Scale: Adult vc1 04:48 Pain Scale: Adult bm8 05:16 Pain Scale: Adult bm8 Aviva Coma Score: 03:43 Eye Response: spontaneous(4). Motor Response: obeys commands(6). Verbal Response: bm8 oriented(5). Total: 15. 04:48 Eye Response: spontaneous(4). Motor Response: obeys commands(6). Verbal Response: bm8 oriented(5). Total: 15. 05:16 Eye Response: spontaneous(4). Motor Response: obeys commands(6). Verbal Response: bm8 oriented(5). Total: 15. ED Course: 03:14 Patient arrived in ED. [id number] 03:19 Mina Santos MD is Attending Physician. sp3 03:40 Mikal Noalsco, RN is Primary Nurse. bm8 03:43 Patient has correct armband on for positive identification. Bed in low position. Call bm8 light in reach. Side rails up X 1. Client placed on continuous cardiac and pulse oximetry monitoring. NIBP monitoring applied. Pulse ox on. NIBP on. Door closed. Noise minimized. Pillow given. Verbal reassurance given. Head of bed elevated. 03:43 No provider procedures requiring assistance completed. Initial lab(s) drawn, by , bmLuis Antonio sent to lab. Inserted saline lock: 20 gauge in right antecubital area, using aseptic technique. Blood collected. Flushed with 10 mL NS. Patient maintains SpO2 saturation greater than 95% on room air. 03:45 Triage completed. vc1 04:16 CT Abd/Pelvis - IV Contrast Only In Process Unspecified. EDMS 05:16 Patient is placed in psych hold. bm8 05:16 Provided Education on: post er care. bm8 05:16 IV discontinued, intact, bleeding controlled, No redness/swelling at site. Pressure bm8 dressing applied. 05:24 Arm band placed on right wrist. bm8 Administered Medications: 04:26 Drug: TORadol - Ketorolac IVP 15 mg IVP once Route: IVP; Site: right antecubital; bm8 04:49 Follow up: Response: No adverse reaction bm8 Medication: 03:43 VIS not applicable for this client. bm8 Outcome: 05:08 Discharge ordered by . sp3 05:16 Discharged to home ambulatory, bm8 05:16 Condition: stable 05:16 Discharge instructions given to patient, Instructed on discharge instructions, follow up and referral plans. no drinking with medication, no driving heavy equipment, medication usage, safety practices, Demonstrated understanding of instructions, follow-up care, medications, Prescriptions given X 1, 05:24 Patient left the ED. bm8 Signatures: Dispatcher [employer] EDMS Mina Santos MD MD sp3 Maria C [id number] Evelyn Dawn RN RN vc1 Mikal Nolasco RN RN bm8
[2024-05-20 05:32] VITALS: TEMP 98.6
[2024-05-20 05:34] VITALS: O2SAT 98
[2024-05-20 05:35] VITALS: BP 95/57
== END 2024-05-20 05:24 | disposition home or self-care (01) ==
LOC: ER 03:12
DX: S39.011A Strain of muscle, fascia and tendon of abdomen, initial encounter (principal)
CPT/HCPCS: 36415; 74177; 80053; 81001; 81025; 83690; 85025; 96374; 99284; Q9967

== ENCOUNTER 2024-11-14 10:38 | Emergency (ER) | payer OTHER, SELFPAY ==
--- OUTSIDE RECORDS SUMMARY | 2024-11-14 10:42 | XMS REPORT | Continuity of Care Document ---
Author Name Unknown Address [address] [facility] [place] [address] [facility] [place] Address [address] [facility] [place] [address] Care Team Providers Care Hop Picker Name Role Phone Bonilla Marlo SANCHEZ Primary Care Physician + -[phone] SUELLEN RICHARDSON Attending Clinician UnavailSuellen Adam CNM Attending Clinician +- [phone] NELI MERCER Attending Clinician Unavailable NELI MERCER Attending Clinician Unavailable NELI MERCER Attending Clinician Unavailable Doctor Unassigned, [place] Attending Clinician U carmela Ultrasound, Ang-Mfm Attending Clinician UnavailOdessa Lehman MD Attending Clinician [phone] ODESSA COLINDRES Attending Clinician Unavailable ODESSA COLINDRES Attending Clinician Unavailable David Regalado Attending Clinician [phone] David Regalado Attending Clinician [phone] TRICIA HOPKINS Attending Clinician Unavail able Tricia Mosher Attending Clinician + Suellen Richardson CNM Attending Clinician [phone]- [phone] Doctor Unassigned, [place] Attending Clinician U Marlo Thomas Attending Clinician MARLO Cortez Attending Clinician NAJMA Tidwell Attending Clinician Unavailjerry e Payers Payer Name Policy Type Policy Number Effective Date Expirati on Date Source [facility] [employer] [id number] 2020 00:00:00 Problems Condition Name Condition Details Condition Category Status Onset Date Resolution Date Last Treatment Date Treating Clinician Comments Source History of abnormal cervical Pap smear History of abnormal cervical Pap smear Disease Active 7- 00:00: 00 Overview: Formattin g of this note might be different from the original. 11/2021 ASCUS07/2 022 negative, routine screening [facility] Obesity (BMI 30-39.9) Obesity (BMI 30-39.9) Disease Active 3-08 00:00: 00 [facility] Other general counseling and advice for contracept bridgett management Other general counseling and advice for contracept bridgett management Disease Resolve d 3-08 00:00: 00 2024-08-27 00:00:00 2024-08-27 13:07:27 [facility] Dysuria Dysuria Disease Resolve d 8-31 00:00: 00 2023-03-05 00:00:00 2023-03-05 15:27:04 [facility] Vaginal itching Vaginal itching Disease Resolve d 8-31 00:00: 00 2023-03-05 00:00:00 2023-03-05 15:27:16 [facility] Flu vaccine refused Flu vaccine refused Disease Active 2019-08 1-12 00:00: 00 2023-03-05 00:00:00 2023-03-05 15:27:01 [facility] Susceptibl e to varicella (non-immun e), currently Susceptibl e to varicella (non-immun e), currently Disease Resolve d 7-29 00:00: 00 2023-03-05 00:00:00 2023-03-05 15:27:00 [facility] Rubella non-immune status, antepartum Rubella non-immune status, antepartum Disease Resolve d -11 00:00: 00 2023-03-05 00:00:00 2023-03-05 15:26:58 Overview: Sydni cordova of this note might be different from the original. Needs Rubella vaccine in PP [facility] care and examinatio n of lactating mother care and examinatio n of lactating mother Disease Resolve d - 00:00: 00 2020-10-31 00:00:00 2020-10-31 16:11:59 [facility] Obesity affecting in third trimester Obesity affecting in third trimester Disease Resolve d 02-21 00:00: 00 2020-10-31 00:00:00 2020-10-31 16:12:05 [facility] Anemia, Anemia, Disease Resolve d 8-15 00:00: 00 2020-10-31 00:00:00 2020-10-31 16:12:07 [facility] 38 weeks gestation of 38 weeks gestation of Disease Resolve d 1-05 00:00: 00 2020-09-23 00:00:00 2020-09-23 15:54:50 [facility] Rupture of membranes with meconium present Rupture of membranes with meconium present Disease Resolve d 1-05 00:00: 00 2020-09-23 00:00:00 2020-09-23 15:54:43 [facility] Anemia of mother in , antepartum Anemia of mother in , antepartum Disease Resolve d 2019-08 0-16 00:00: 00 2020-09-23 00:00:00 2020-09-23 15:54:49 [facility] Supervisio n of high risk in third trimester Supervisio n of high risk in third trimester Disease Resolve d 02-21 00:00: 00 2020-09-23 00:00:00 2020-09-23 15:54:39 [facility] Multiparit y Multiparit y Disease Resolve d 02-21 00:00: 00 2020-09-23 00:00:00 2020-09-23 15:54:48 [facility] Single live Single live Disease Resolve d 8-13 00:00: 00 2020-09-23 00:00:00 2020-09-23 15:54:41 [facility] (spontaneo us vaginal delivery) (spontaneo us vaginal delivery) Disease Resolve d 8-13 00:00: 00 2020-09-23 00:00:00 2020-09-23 15:54:38 [facility] Single live Single live Disease Resolve d 8-13 00:00: 00 2020-09-23 00:00:00 2020-09-23 15:54:41 [facility] Placenta previa in second trimester Placenta previa in second trimester Disease Resolve d 05-19 00:00: 00 2020-07-19 00:00:00 2020-07-19 14:56:12 [facility] Encounter for control pills maintenanc e Encounter for control pills maintenanc e Disease Resolve d 6-11 00:00: 00 2020-02-22 00:00:00 2020-02-22 08:25:51 [facility] Well woman exam Well woman exam Disease Resolve d 6-11 00:00: 00 2020-02-22 00:00:00 2020-02-22 08:25:49 [facility] BMI 34.0-34.9, adult BMI 34.0-34.9, adult Disease Resolve d 6-11 00:00: 00 2020-02-22 00:00:00 2020-02-22 08:25:55 [facility] Depo-Prove ra contracept bridgett status Depo-Prove ra contracept bridgett status Disease Resolve d 6-07 00:00: 00 2020-02-22 00:00:00 2020-02-22 08:25:52 [facility] Encounter for contracept bridgett management , unspecifie d type Encounter for contracept bridgett management , unspecifie d type Disease Resolve d 2017-0 6-23 00:00: 00 2020-02-22 00:00:00 2020-02-22 08:25:50 [facility] Vaginal yeast infection Vaginal yeast infection Disease Resolve d 2016- 4-03 00:00: 00 2020-02-22 00:00:00 2020-02-22 08:25:46 [facility] Class 1 obesity with body mass index (BMI) of 34.0 to 34.9 in adult, unspecifie d obesity type, unspecifie d whether serious comorbidit y present Class 1 obesity with body mass index (BMI) of 34.0 to 34.9 in adult, unspecifie d obesity type, unspecifie d whether serious comorbidit y present Disease Resolve d 2-27 00:00: 00 2020-02-22 00:00:00 2020-02-22 08:25:56 [facility] Well woman exam with routine gynecologi maddie exam Well woman exam with routine gynecologi maddie exam Disease Resolve d 2015- 0-31 00:00: 00 2020-02-22 00:00:00 2020-02-22 08:25:48 [facility] Maternal varicella, non-immune Maternal varicella, non-immune Disease Active 2-27 00:00: 00 2018-01-30 00:00:00 2018-01-30 08:53:30 [facility] Indication for care in labor or delivery Indication for care in labor or delivery Disease Resolve d 8-12 00:00: 00 2017-05-03 00:00:00 2017-05-03 11:09:52 [facility] 37 weeks gestation of 37 weeks gestation of Disease Resolve d 8-12 00:00: 00 2017-05-03 00:00:00 2017-05-03 11:29:38 [facility] Uterine size-date discrepanc y, antepartum , third trimester Uterine size-date discrepanc y, antepartum , third trimester Disease Resolve d 8-04 00:00: 00 2017-05-03 00:00:00 2017-05-03 11:29:35 [facility] Insufficie nt weight gain of , third trimester Insufficie nt weight gain of , third trimester Disease Resolve d 0 8-04 00:00: 00 2017-05-03 00:00:00 2017-05-03 11:29:36 [facility] Oligohydra mnios antepartum Oligohydra mnios antepartum Disease Resolve d 0 6-23 00:00: 00 2017-05-03 00:00:00 2017-05-03 11:29:34 [facility] Oligohydra mnios antepartum Oligohydra mnios antepartum Disease Resolve d 0 6-23 00:00: 00 2017-05-03 00:00:00 2017-05-03 11:29:34 [facility] Traumatic injury during in third trimester Traumatic injury during in third trimester Disease Resolve d 0 6-20 00:00: 00 2017-05-03 00:00:00 2017-05-03 11:29:31 [facility] Supervisio n of high risk , antepartum , second trimester Supervisio n of high risk , antepartum , second trimester Disease Resolve d 0 4-03 00:00: 00 2017-05-03 00:00:00 2017-05-03 11:29:30 [facility] Anemia in , unspecifie d trimester Anemia in , unspecifie d trimester Disease Resolve d 0 6-02 00:00: 00 2017-04-09 00:00:00 2017-04-09 06:34:22 [facility] 30 weeks gestation of 30 weeks gestation of Disease Resolve d 0 6-24 00:00: 00 2017-03-15 00:00:00 2017-03-15 13:30:17 [facility] Nausea and vomiting in prior to 22 weeks gestation Nausea and vomiting in prior to 22 weeks gestation Disease Resolve d 0 3- 00:00: 00 2017-01-10 00:00:00 2017-01-10 15:31:33 [facility] Nausea and vomiting in prior to 22 weeks gestation Nausea and vomiting in prior to 22 weeks gestation Disease Resolve d 0 3-01 00:00: 00 2017-01-10 00:00:00 2017-01-10 15:31:33 [facility] High risk , antepartum High risk , antepartum Disease Resolve d 10-24 00:00: 00 2016-11-26 00:00:00 2016-11-26 15:13:24 [facility] Obesity, unspecifie d Obesity, unspecifie d Disease Resolve d 2015-08 00:00: 00 2016-10-24 00:00:00 2016-10-24 15:33:36 [facility] Depo contracept ion Depo contracept ion Disease Resolve d 01-03 00:00: 00 2016-06-25 00:00:00 2016-06-25 14:08:02 [facility] UTI symptoms UTI symptoms Disease Resolve d 01-03 00:00: 00 2016-06-25 00:00:00 2016-06-25 14:08:06 [facility] Contracept bridgett management Contracept bridgett management Disease Resolve d 05-16 00:00: 00 2016-06-25 00:00:00 2022-03-11 00:37:43 [facility] Backache Backache Disease Resolve d 05-16 00:00: 00 2016-01-04 00:00:00 2022-03-11 00:37:43 [facility] Routine infant or child health check Routine infant or child health check Disease Resolve d 05-05 00:00: 00 2015-05-16 00:00:00 2015-05-16 16:53:01 [facility] Impetigo Impetigo Disease Resolve d 12-03 00:00: 00 2015-05-16 00:00:00 2015-05-16 16:53:00 [facility] Other acute infections of external ear Other acute infections of external ear Disease Resolve d 12-03 00:00: 00 2015-05-16 00:00:00 2015-05-16 16:52:58 [facility] Allergies, Adverse Reactions, Alerts Allergy Name Allergy Type Status Severity Reaction(s) Onset Date Inactive Date Treating Clinician Comments Source NO KNOWN ALLERGIE S Drug Class Active [facility] Social History Social Habit Start Date Stop Date Quantity Comments Source ASSERTION 2024-07-08 00:00:00 [facility] History SDOH Alcohol Frequency [facility] History SDOH Alcohol Std Drinks [facility] History SDOH Alcohol Binge [facility] Alcoholic beverage intake 2024-10-23 00:00:00 2024-10-23 00:00:00 Ex-drinker (finding) [facility] History of Social function 2024-08-27 00:00:00 2024-08-27 00:00:00 [facility] Tobacco use and exposure 2023-03-05 00:00:00 2023-03-05 00:00:00 Smokeless tobacco non-user [facility] Alcohol intake 2023-03-05 00:00:00 2023-03-05 00:00:00 Current drinker of alcohol (finding) [facility] Exposure to SARS-CoV-2 (event) 2021-10-30 00:00:00 2021-11-29 14:04:00 Not sure [facility] Alcohol Comment 2021-11-29 00:00:00 2021-11-29 00:00:00 social [facility] Sex assigned at 1995 00:00:00 1995 00:00:00 [facility] Smoking Status Start Date Stop Date Source Never smoked tobacco [facility] Medications Ordered Medication Name Filled Medication Name Start Date Stop Date Current Medication? Ordering Clinician Indication Dosage Frequency Signature (SIG) Comments Components Source PNV 67-iron ps-folate no.1-dha (VITAFOL ULTRA) 29 mg iron- 1 mg-200 mg Cap 1-31 00:00: 00 Yes [id number] 1{capsu le} Take 1 capsule by mouth in the morning. [facility] proMETHazin e 25 mg tablet -15 00:00: 00 Yes [id number] 25mg Take 1 tablet by mouth every 4 (four) hours as needed for Nausea and Vomiting (N/V). [facility] VIENVA 0.1-20 mg-mcg per tablet 8-19 00:00: 00 08-27 00:00 :00 No [id number] 1{tbl} TAKE 1 TABLET BY MOUTH IN THE MORNING [facility] levonorgest rel-ethinyl estradiol 0.1-20 mg-mcg per tablet -17 00:00: 00 04-13 00:00 :00 No [id number] 1{tbl} Take 1 tablet by mouth in the morning. [facility] levonorgest rel-ethinyl estradiol 0.1-20 mg-mcg per tablet 7- 00:00: 00 03-11 00:00 :00 No [id number] 1{tbl} Take 1 tablet by mouth in the morning. [facility] norethindro ne 0.35 mg tablet 7- 00:00: 00 03-05 00:00 :00 No [id number] 1{tbl} Take 1 tablet by mouth in the morning. [facility] norethindro ne 0.35 mg tablet 0 6 00:00: 00 03-05 00:00 :00 No [id number] 1{tbl} Take 1 tablet by mouth in the morning. [facility] norethindro ne 0.35 mg tablet 12-19 00:00: 00 02-18 00:00 :00 No [id number] 1{tbl} Take 1 tablet by mouth in the morning. [facility] norethindro ne 0.35 mg tablet 0 3 00:00: 00 12-19 00:00 :00 No [id number] 1{tbl} Take 1 tablet by mouth in the morning. [facility] norethindro ne 0.35 mg tablet 0 4-06 00:00: 00 11-23 00:00 :00 No [id number] 1{tbl} Take 1 tablet by mouth daily. [facility] VITAFOL ULTRA 29 mg iron- 1 mg-200 mg Cap 2021-0 1-10 00:00: 00 Yes TAKE ONE (1) CAPSULE(S) BY MOUTH ONCE A DAY. [facility] VITAFOL ULTRA 29 mg iron- 1 mg-200 mg Cap 09-04 00:00: 00 03-05 00:00 :00 No TAKE ONE (1) CAPSULE(S) BY MOUTH ONCE A DAY. [facility] vitamin w/FA tablet 08-31 00:00: 00 Yes [id number] 1{tbl} Take 1 tablet by mouth daily. [facility] ferrous sulfate 325 mg (65 mg iron) tablet 08-31 00:00: 00 08-27 00:00 :00 No [id number] 325mg Take 1 tablet by mouth 2 (two) times daily. [facility] docusate calcium 240 mg capsule 08-31 00:00: 00 03-05 00:00 :00 No [id number] 240mg Take 1 capsule by mouth once daily as needed for Constipati on. [facility] ibuprofen 600 mg tablet 08-31 00:00: 00 03-05 00:00 :00 No [id number] 600mg Take 1 tablet by mouth every 6 (six) hours as needed (Pain). Take with food or milk. [facility] vitamin w/FA tablet 08-31 00:00: 00 03-05 00:00 :00 No [id number] 1{tbl} Take 1 tablet by mouth daily. [facility] Immunizations Ordered Immunization Name Filled Immunization Name Date Status Comments Source [facility] 2020-10-31 00:00:00 Completed [facility] HPV9 2020-10-31 00:00:00 Completed [facility] 2020-10-31 00:00:00 Completed [facility] 2020-10-31 00:00:00 Completed [facility] HPV9 2020-10-31 00:00:00 Completed [facility] HPV9 2020-10-31 00:00:00 Completed [facility] 2020-10-31 00:00:00 Completed [facility] HPV9 2020-10-31 00:00:00 Completed [facility] HPV9 2020-10-31 00:00:00 Completed [facility] HPV9 2020-10-31 00:00:00 Completed [facility] HPV9 2020-10-31 00:00:00 Completed [facility] HPV9 2020-10-31 00:00:00 Completed TDAP 2020-06-23 00:00:00 Completed [facility] TDAP 2020-06-23 00:00:00 Completed [facility] TDAP 2020-06-23 00:00:00 Completed [facility] TDAP 2020-06-23 00:00:00 Completed [facility] TDAP 2020-06-23 00:00:00 Completed [facility] TDAP 2020-06-23 00:00:00 Completed [facility] TDAP 2020-06-23 00:00:00 Completed [facility] TDAP 2020-06-23 00:00:00 Completed [facility] TDAP 2020-06-23 00:00:00 Completed [facility] TDAP 2020-06-23 00:00:00 Completed [facility] TDAP 2020-06-23 00:00:00 Completed [facility] TDAP 2020-06-23 00:00:00 Completed [facility] HPV9 2017-04-09 00:00:00 Completed [facility] HPV9 2017-04-09 00:00:00 Completed [facility] HPV9 2017-04-09 00:00:00 Completed [facility] HPV9 2017-04-09 00:00:00 Completed [facility] HPV9 2017-04-09 00:00:00 Completed [facility] HPV9 2017-04-09 00:00:00 Completed [facility] HPV9 2017-04-09 00:00:00 Completed [facility] HPV9 2017-04-09 00:00:00 Completed [facility] HPV9 2017-04-09 00:00:00 Completed [facility] HPV9 2017-04-09 00:00:00 Completed [facility] HPV9 2017-04-09 00:00:00 Completed [facility] HPV9 2017-04-09 00:00:00 Completed [facility] TDAP 2017-01-24 00:00:00 Completed [facility] TDAP 2017-01-24 00:00:00 Completed [facility] TDAP 2017-01-24 00:00:00 Completed [facility] TDAP 2017-01-24 00:00:00 Completed [facility] TDAP 2017-01-24 00:00:00 Completed [facility] TDAP 2017-01-24 00:00:00 Completed [facility] TDAP 2017-01-24 00:00:00 Completed [facility] TDAP 2017-01-24 00:00:00 Completed [facility] TDAP 2017-01-24 00:00:00 Completed [facility] TDAP 2017-01-24 00:00:00 Completed [facility] TDAP 2017-01-24 00:00:00 Completed [facility] TDAP 2017-01-24 00:00:00 Completed TDAP 2011-08-26 00:00:00 Completed [facility] TDAP 2011-08-26 00:00:00 Completed [facility] TDAP 2011-08-26 00:00:00 Completed [facility] TDAP 2011-08-26 00:00:00 Completed [facility] TDAP 2011-08-26 00:00:00 Completed [facility] TDAP 2011-08-26 00:00:00 Completed [facility] TDAP 2011-08-26 00:00:00 Completed [facility] TDAP 2011-08-26 00:00:00 Completed [facility] TDAP 2011-08-26 00:00:00 Completed [facility] TDAP 2011-08-26 00:00:00 Completed [facility] TDAP 2011-08-26 00:00:00 Completed [facility] TDAP 2011-08-26 00:00:00 Completed [facility] HEPATITIS A 2006-10-31 00:00:00 Completed [facility] HPV 2006-10-31 00:00:00 Completed Varicella (varivax)(chicken pox) 2006-10-31 00:00:00 Completed HEPATITIS A 2006-10-31 00:00:00 Completed [facility] HPV 2006-10-31 00:00:00 Completed [facility] Varicella (varivax)(chicken pox) 2006-10-31 00:00:00 Completed [facility] HEPATITIS A 2006-10-31 00:00:00 Completed [facility] HPV 2006-10-31 00:00:00 Completed [facility] Varicella (varivax)(chicken pox) 2006-10-31 00:00:00 Completed [facility] TDAP Unknown Completed [facility] HPV9 Unknown Completed [facility] HPV9 Unknown Completed [facility] TDAP Unknown Completed [facility] TDAP Unknown Completed [facility] HPV9 Unknown Completed [facility] TDAP Unknown Completed [facility] HPV9 Unknown Completed [facility] TDAP Unknown Completed [facility] HPV9 Unknown Completed [facility] TDAP Unknown Completed [facility] HPV9 Unknown Completed [facility] TDAP Unknown Completed [facility] HPV9 Unknown Completed [facility] Vital Signs Vital Name Observation Time Observation Value Comments S ource Systolic blood pressure 2024-10-23 16:59:00 97 mm[Hg] [facility] Diastolic blood pressure 2024-10-23 16:59:00 64 mm[Hg] [facility] Heart rate 2024-10-23 16:59:00 82 /min [facility] Body temperature 2024-10-23 16:59:00 36.56 Hannah [facility] Respiratory rate 2024-10-23 16:59:00 18 /min [facility] Body height 2024-10-23 16:59:00 149.9 cm [facility] Body weight 2024-10-23 16:59:00 84.086 kg [facility] BMI 2024-10-23 16:59:00 37.44 kg/m2 [facility] Systolic blood pressure 2024-09-25 17:00:00 106 mm[Hg] [facility] Diastolic blood pressure 2024-09-25 17:00:00 61 mm[Hg] [facility] Heart rate 2024-09-25 17:00:00 81 /min [facility] 2024-09-25 17:00:00 36.56 Hannah [facility] Respiratory rate 2024-09-25 17:00:00 18 /min [facility] Body height 2024-09-25 17:00:00 149.9 cm [facility] 2024-09-25 17:00:00 86.183 kg [facility] BMI 2024-09-25 17:00:00 38.38 kg/m2 [facility] Systolic blood pressure 2024-08-27 19:18:00 109 mm[Hg] [facility] Diastolic blood pressure 2024-08-27 19:18:00 60 mm[Hg] [facility] Heart rate 2024-08-27 19:18:00 83 /min [facility] 2024-08-27 19:18:00 36.56 Hannah [facility] Respiratory rate 2024-08-27 19:18:00 18 /min [facility] Body height 2024-08-27 19:18:00 149.9 cm [facility] Body weight 2024-08-27 19:18:00 88.508 kg [facility] BMI 2024-08-27 19:18:00 39.41 kg/m2 [facility] Systolic blood pressure 2024-03-11 18:07:00 131 mm[Hg] [facility] Diastolic blood pressure 2024-03-11 18:07:00 69 mm[Hg] [facility] Heart rate 2024-03-11 18:07:00 93 /min [facility] Body temperature 2024-03-11 18:07:00 36.67 Hannah [facility] Respiratory rate 2024-03-11 18:07:00 18 /min [facility] Body height 2024-03-11 18:07:00 149.9 cm [facility] weight 2024-03-11 18:07:00 88.633 kg [facility] BMI 2024-03-11 18:07:00 39.47 kg/m2 [facility] Systolic blood pressure 2024-01-30 13:01:00 115 mm[Hg] [facility] Diastolic blood pressure 2024-01-30 13:01:00 70 mm[Hg] [facility] Heart rate 2024-01-30 13:01:00 78 /min [facility] Body temperature 2024-01-30 13:01:00 36.06 Hannah [facility] Respiratory rate 2024-01-30 13:01:00 18 /min [facility] Body height 2024-01-30 13:01:00 149.9 cm [facility] Body weight 2024-01-30 13:01:00 87.272 kg [facility] BMI 2024-01-30 13:01:00 38.86 kg/m2 [facility] Systolic blood pressure 2023-06-05 18:32:00 112 mm[Hg] [facility] Diastolic blood pressure 2023-06-05 18:32:00 66 mm[Hg] [facility] Heart rate 2023-06-05 18:32:00 76 /min [facility] Body temperature 2023-06-05 18:32:00 36.39 Hannah [facility] Respiratory rate 2023-06-05 18:32:00 18 /min [facility] Body height 2023-06-05 18:32:00 149.9 cm [facility] Body weight 2023-06-05 18:32:00 85.276 kg [facility] BMI 2023-06-05 18:32:00 37.97 kg/m2 [facility] Systolic blood pressure 2023-03-05 20:10:00 111 mm[Hg] [facility] Diastolic blood pressure 2023-03-05 20:10:00 63 mm[Hg] [facility] Heart rate 2023-03-05 20:10:00 84 /min [facility] Body temperature 2023-03-05 20:10:00 36.78 Hannah [facility] Respiratory rate 2023-03-05 20:10:00 18 /min [facility] Body height 2023-03-05 20:10:00 149.9 cm [facility] Body weight 2023-03-05 20:10:00 87.714 kg [facility] BMI 2023-03-05 20:10:00 39.06 kg/m2 [facility] Procedures Procedure Date / Time Performed Performing Clinician Source POCT URINALYSIS 2024-10-23 17:08:00 Suellen Richardson [facility] NIPT - NON-INVASIVE TEST RESULTS 2024-10-07 13:27:59 Doctor Unassigned, [place] [facility] SECOND AND THIRD TRIMESTER ULTRASOUND 2024-10-02 17:25:00 Suellen Richardson [facility] NIPT - NON-INVASIVE TEST RESULTS 2024-10-02 15:08:01 Doctor Unassigned, [place] [facility] NIPT - NON-INVASIVE TEST RESULTS 2024-10-02 15:07:18 Doctor Unassigned, [place] [facility] POCT TEST 2024-08-27 19:16:00 Kari Richardson [facility] POCT URINALYSIS W/O SPECIFIC GRAVITY 2024-08-27 19:16:00 Suellen Richardson [facility] THYROID STIMULATING HORMONE 2024-03-11 19:06:00 David Lentz [facility] CBC WITH DIFF 2024-03-11 19:06:00 David Lentz [facility] GC & CHLAMYDIA AMPLIFIED ASSAY 2024-03-11 19:06:00 David Lentz [facility] HIV 1/2 AG-AB WITH REFLEX 2024-03-11 19:06:00 David Lentz [facility] SYPHILIS IGG/IGM 2024-03-11 19:06:00 David Lentz [facility] POCT TEST 2023-06-05 18:34:00 Mick Hopkins [facility] GALV ONLY - VAGINAL PATHOGENS BY NUCLEIC ACID TESTING 2023-03-05 21:20:00 Suellen Richardson [facility] GC & CHLAMYDIA AMPLIFIED ASSAY 2023-03-05 20:56:00 Suellen Richardson [facility] TRICHOMONAS AMPLIFIED ASSAY 2023-03-05 20:56:00 Suellen Richardson [facility] PAP SMEAR-LIQUID BASED-CP 2023-03-05 20:56:00 Suellen Richardson [facility] IMMTRAC2 CONSENT 2023-03-05 05:01:00 Doctor Unas signed, [place] [facility] NOTICE OF PRIVACY PRACTICES 2023-01-29 19:01:22 Doctor Unassigned, [place] [facility] CONSENT/REFUSAL FOR DIAGNOSIS AND TREATMENT 2023-01-29 19:00:53 Doctor Unassigned, [place] [facility] ASSIGNMENT OF BENEFITS 2023-01-29 19:00:26 Docto r Unassigned, [place] [facility] Encounters Start Date/Time End Date/Time Encounter Type Admission Type Attending [facility] Care Department Encounter ID Source 2021-06-24 14:58:50 Outpatient [facility] [id number] [facility] 2024-11-13 00:00:00 2024-11-13 15:58:07 Case Management Suellen Richardson [facility] 1..840.114 350.1.13.10 4.2.7.2.686 [id number] 107 [id number] [facility] 2024-11-13 09:00:00 2024-11-13 09:00:00 Outpatient NELI MEZA, NELI BOOTH [facility] [id number] [facility] 2024-10-27 00:00:00 2024-10-27 16:49:16 Telephone Suellen Richardson [facility] [employer] ..840.114 350.1.13.10 4.2.7.2.686 [id number] 107 [id number] [facility] 2024-10-23 10:45:00 2024-10-23 11:44:30 Routine Visit Suellen Richardson [facility] [employer] TE[employer]NIC[facility] 1.2.840.114 350.1.13.10 4.2.7.2.686 [id number] 107 [id number] [facility] 2024-10-23 10:45:00 2024-10-23 11:44:30 Outpatient R SUELLEN RICHARDSON [facility] [id number] [facility] 2024-10-02 00:00:00 2024-10-10 06:09:20 Orders Only Doctor Unassigned, [place] Doctor Unassigned, [place] [facility] 1.2.840.114 350.1.13.10 4.2.7.2.686 [id number] [id number] [facility] 2024-10-02 00:00:00 2024-10-10 06:09:16 Orders Only Doctor Unassigned, [place] Doctor Unassigned, [place] [facility] 1.2.840.114 350.1.13.10 4.2.7.2.686 [id number] [id number] [facility] 2024-10-07 00:00:00 2024-10-10 06:06:58 Orders Only Doctor Unassigned, [place] Doctor Unassigned, [place] [facility] 1.2.840.114 350.1.13.10 4.2.7.2.686 [id number] [id number] [facility] 2024-10-02 00:00:00 2024-10-02 14:00:43 Abstract Suellen Richardson [facility] 1.2.840.114 350.1.13.10 4.2.7.2.686 [id number] 107 [id number] [facility] 2024-10-02 11:00:00 2024-10-02 11:33:36 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, Odessa Lozano [facility] [employer] 1.2.840.114 350.1.13.10 4.2.7.2.686 [id number] [facility] 2024-10-02 11:00:00 2024-10-02 11:33:36 Outpatient P ODESSA COLINDRES SHANNON [facility] [id number] [facility] 2024-09-25 10:45:00 2024-09-25 11:38:22 Outpatient R SUELLEN RICHARDSON [facility] [id number] [facility] 2024-09-25 10:45:00 2024-09-25 11:38:22 Routine Visit Suellen Richardson [facility] 1.2.840.114 350.1.13.10 4.2.7.2.686 [id number] 107 [id number] [facility] 2024-09-09 00:00:00 2024-09-09 16:57:38 Telephone Suellen Richardson [facility] [employer] 1.2.840.114 350.1.13.10 4.2.7.2.686 [id number] 107 [id number] [facility] 2024-08-27 13:00:00 2024-08-27 14:28:41 Outpatient R SUELLEN RICHARDSON [facility] [id number] [facility] 2024-08-27 13:30:00 2024-08-27 14:11:19 Outpatient R SUELLEN RICHARDSON [facility] [id number] [facility] 2024-08-27 13:30:00 2024-08-27 14:11:19 Initial Visit Suellen Richardosn [facility] [employer] 1.2.840.114 350.1.13.10 4.2.7.2.686 [id number] 107 [id number] [facility] 2024-05-05 09:00:00 2024-05-05 09:00:00 Outpatient R [facility] [id number] [facility] 2024-05-05 00:00:00 2024-05-05 08:57:11 RefDavid Esparza [facility] [employer] 1.2.840.114 350.1.13.10 4.2.7.2.686 [id number] 107 [id number] [facility] 2024-04-13 13:08:36 2024-04-13 13:08:36 Outpatient [facility] [id number] Kedar Duque 2024-04-12 00:00:00 2024-04-13 08:57:15 David Jeffery [facility] [facility] 1.2.840.114 350.1.13.10 4.2.7.2.686 [id number] 107 [id number] [facility] 2024-02-11 00:00:00 2024-03-14 18:18:26 Patient Secure Msg David Lentz [facility] [employer] 1.2.840.114 350.1.13.10 4.2.7.2.686 [id number] 107 [id number] [facility] 2024-03-11 13:15:00 2024-03-11 14:06:37 Outpatient R DAVID LENTZ [facility] [id number] [facility] 2024-03-11 13:15:00 2024-03-11 14:06:37 Office Visit David Lentz [facility] [employer] 1.2.840.114 350.1.13.10 4.2.7.2.686 [id number] 107 [id number] [facility] 2024-01-30 08:15:00 2024-01-30 08:36:00 Outpatient R DAVID LENTZ [facility] [id number] [facility] 2024-01-30 08:15:00 2024-01-30 08:36:00 Office Visit David Lentz Damilola C [facility] [employer] 1..840.114 350.1.13.10 4.2.7.2.686 [id number] 107 [id number] [facility] 2024-01-30 06:45:00 2024-01-30 06:45:00 Outpatient R DAVID LENTZ [facility] [id number] [facility] 2023-06-05 13:30:00 2023-06-05 13:45:00 Office Visit Tricia Hopkins [facility] [employer] [facility] 1.840.114 350.1.13.10 4.2.7.2.686 [id number] 107 [id number] [facility] 2023-06-05 13:30:00 2023-06-05 13:30:00 Outpatient R TRICIA HOPKINS [facility] [id number] [facility] 2023-03-05 14:45:00 2023-03-05 16:06:45 Outpatient R SUELLEN RICHARDSON [facility] [id number] [facility] 2023-03-05 14:45:00 2023-03-05 16:06:45 Office Visit Suellen Richardson [facility] [employer] 1.840.114 350.1.13.10 4.2.7.2.686 [id number] 107 [id number] [facility] 2023-03-05 00:00:00 2023-03-05 00:00:00 Orders Only Doctor Unassigned, [place] [facility] 1..840.114 350.1.13.10 4.2.7.2.686 [id number] [id number] [facility] 2023-02-18 00:00:00 2023-02-18 00:00:00 Telephone Tricia Hopkins [facility] [employer] TE[employer]NICIAN [facility] 1.840.114 350.1.13.10 4.2.7.2.686 [id number] 107 [id number] [facility] 2023-02-17 00:00:00 2023-02-17 00:00:00 Refill Tricia Hopkins [facility] [employer] TE[employer] [facility] 1.840.114 350.1.13.10 4.2.7.2.686 [id number] 107 [id number] [facility] 2023-01-29 14:15:00 2023-01-29 14:15:00 Outpatient R TRICIA HOPKINS [facility] [id number] [facility] 2023-01-29 00:00:00 2023-01-29 00:00:00 Orders Only Doctor Unassigned, [place] [facility] 1.0.114 350.1.13.10 4.2.7.2.686 [id number] [id number] [facility] 2023-01-29 00:00:00 2023-01-29 00:00:00 Telephone Marlo Bonilla [facility] [employer] TECHNICIAN [facility] 1..114 350.1.13.10 4.2.7.2.686 [id number] 107 [id number] [facility] 2022-12-19 00:00:00 2022-12-19 00:00:00 Refill Tricia Hopkins [facility] [employer] [facility] 1.0.114 350.1.13.10 4.2.7.2.686 [id number] 107 [id number] [facility] 2022-12-19 00:00:00 2022-12-19 00:00:00 Telephone Tricia Hopkins [facility] [employer] TE[employer] 1.2.840.114 350.1.13.10 4.2.7.2.686 [id number] 107 [id number] [facility] 2022-11-23 00:00:00 2022-11-23 00:00:00 Telephone Tricia Hopkins [employer] [facility] 1.2.840.114 350.1.13.10 4.2.7.2.686 [id number] 107 [id number] [facility] 2021-12-11 00:00:00 2021-12-11 00:00:00 Telephone Tricia Hopkins [employer] [facility] 1.2.840.114 350.1.13.10 4.2.7.2.686 [id number] 107 [id number] [facility] 2021-12-08 00:00:00 2021-12-08 00:00:00 Telephone Tricia Hopkins [employer] TE[employer] [facility] 1.2.840.114 350.1.13.10 4.2.7.2.686 [id number] 107 [id number] [facility] 2021-11-29 14:45:00 2021-11-29 15:34:36 Outpatient R TRICIA HOPKINS [facility] [id number] [facility] 2021-11-29 14:45:00 2021-11-29 15:34:36 Office Visit Tricia Hopkins [employer] TE[employer] [facility] 1.2.840.114 350.1.13.10 4.2.7.2.686 [id number] 107 [id number] [facility] 2021-11-29 14:45:00 2021-11-29 15:34:36 Outpatient R TRICIA HOPKINS [facility] [id number] [facility] 2021-11-27 00:00:00 2021-11-27 00:00:00 Telephone Marlo Bonilla [facility] [employer] 1.2840.114 350.1.13.10 4.2.7.2.686 [id number] 107 [id number] [facility] 2021-10-30 00:00:00 2021-10-30 00:00:00 Refill Tricia Hopkins [facility] [employer] TE[employer] [facility] 1.2840.114 350.1.13.10 4.2.7.2.686 [id number] 107 [id number] [facility] 2021-04-28 00:00:00 2021-04-28 00:00:00 Telephone Marlo Bonilla [facility] [employer] TE[employer]NICIAN [facility] 1.840.114 350.1.13.10 4.2.7.2.686 [id number] 107 [id number] [facility] 2021-04-25 11:05:30 2021-04-25 11:24:54 Office Visit Marlo Bonilla [facility] [employer] TECHNICIAN [facility] 1.840.114 350.1.13.10 4.2.7.2.686 [id number] 107 [id number] [facility] 2021-04-25 10:45:00 2021-04-25 10:45:00 Outpatient R MARLO BONILLA [facility] [id number] [facility] 2021-04-25 00:00:00 2021-04-25 00:00:00 Orders Only Doctor Unassigned, [place] [facility] 1..114 350.1.13.10 4.2.7.2.686 [id number] [id number] [facility] 2021-04-25 00:00:00 2021-04-25 00:00:00 Letter (Out) Marlo Bonilla [facility] [employer] [facility] 1.2.840.114 350.1.13.10 4.2.7.2.686 [id number] 107 [id number] [facility] 2021-02-03 13:00:00 2021-02-03 13:00:00 Outpatient R AYESHASITRICIA ALBA [facility] [id number] [facility] 2021-01-31 15:15:00 2021-01-31 15:15:00 Outpatient R AKINSIPETRICIA [facility] [id number] [facility] 2020-10-31 16:00:00 2020-10-31 16:00:00 Outpatient R AKINSIANJALITRICIA [facility] [id number] [facility] 2020-10-31 16:00:00 2020-10-31 16:00:00 Outpatient R AKINSIANJALITRICIA [facility] [id number] [facility] 2020-10-31 15:30:00 2020-10-31 15:30:00 Outpatient R AKINSIPETRICIA [facility] [id number] [facility] 2020-10-28 08:30:00 2020-10-28 08:30:00 Outpatient R AKINSIANJALITRICIA [facility] [id number] [facility] 2020-10-20 13:15:00 2020-10-20 13:15:00 Outpatient R AKINSIANJALITRICIA [facility] [id number] [facility] 2020-10-14 13:15:00 2020-10-14 13:15:00 Outpatient R AKINSIPETRICIA [facility] [id number] [facility] 2020-09-23 15:30:00 2020-09-23 15:30:00 Outpatient R AKINSIANJALITRICIA [facility] [id number] [facility] 2020-08-30 14:45:00 2020-08-30 14:45:00 Outpatient R NAJMA PAREDES [facility] [id number] [facility] 2020-08-23 12:45:00 2020-08-23 12:45:00 Outpatient R MARLO BONILLA [facility] [id number] [facility] 2020-08-16 13:15:00 2020-08-16 13:15:00 Outpatient NAJMA CLIFFORD [facility] [id number] [facility] 2020-08-02 11:00:00 2020-08-02 11:00:00 Outpatient NAJMA CLIFFORD [facility] [id number] [facility] 2020-07-19 10:45:00 2020-07-19 10:45:00 Outpatient NAJMA CLIFFORD [facility] [id number] [facility] 2020-07-15 15:00:00 2020-07-15 15:00:00 Outpatient P [facility] [id number] [facility] 2020-07-07 08:45:00 2020-07-07 08:45:00 Outpatient NAJMA CLIFFORD [facility] [id number] [facility] 2020-06-23 08:15:00 2020-06-23 08:15:00 Outpatient NAJMA CLIFFORD [facility] [id number] [facility] 2020-06-09 10:45:00 2020-06-09 10:45:00 Outpatient NAJMA CLIFFORD [facility] [id number] [facility] 2020-05-19 11:00:00 2020-05-19 11:00:00 Outpatient NAJMA CLIFFORD [facility] [id number] [facility] 2020-05-09 11:00:00 2020-05-09 11:00:00 Outpatient P [facility] [id number] [facility] 2020-04-29 14:00:00 2020-04-29 14:00:00 Outpatient P [facility] [id number] [facility] 2020-04-26 16:00:00 2020-04-26 16:00:00 Outpatient NAJMA CLIFFORD [facility] [id number] [facility] 2020-04-22 11:00:00 2020-04-22 11:00:00 Outpatient Dc NAJMA PAREDES [facility] [id number] [facility] 2020-04-21 14:15:00 2020-04-21 14:15:00 Outpatient Dc NAJMA PAREDES [facility] [id number] [facility] 2020-03-22 14:15:00 2020-03-22 14:15:00 Outpatient Dc PAREDESNAJMA [facility] [id number] [facility] 2020-03-18 13:00:00 2020-03-18 13:00:00 Outpatient P [facility] [id number] [facility] 2020-03-17 14:15:00 2020-03-17 14:15:00 Outpatient Dc PAREDESNAJMA [facility] [id number] [facility] 2020-02-23 00:00:00 2020-02-23 00:00:00 Patient Secure Msg Doctor Unassigned, [place] [facility] [employer] TECHNICIAN [facility] 1.2.840.114 350.1.13.10 4.2.7.2.686 [id number] 107 [id number] [facility] 2020-02-19 14:00:00 2020-02-19 14:00:00 Outpatient TRICIA HUSSEIN [facility] [id number] [facility] 2019-11-27 14:00:00 2019-11-27 14:00:00 Outpatient MARLO FELIZ [facility] [id number] [facility] Results Test Description Test Time Test Comments Results Result Co mments Source [facility] - NON-INVASIVE TEST RESULTS 2024-10-07 13:27:59Ordered by an unspecified provider.[facility] - NON-INVASIVE TEST [id number] 15:08:01 Ordered by an unspecified provider.[facility] - NON- INVASIVE TEST [id number] 15:07:18Ordered by an unspecified provider[facility] [id number] 19:16:00* Test Item Value Reference Range Interpretation Comme nts POCT PREG (test code = 1605) Positive On board controls acceptable with C Line (test code = 3574) Yes POCT PREG LOT # (test code = 3575) POCT PREG TEST DATE ( test code = 3576) [facility] Ur[facility] w/o Specific [id number] 19:16:00* Test Item Value Reference Range Interpretation Comme nts POCT PH U (test code = 3254) 7 mg/dl 5-8 POCT U LEUK EST (test code = 3263) 1+ Negative - Negative POCT U NIT (test code = 3262) Neg Negative - Negati ve POCT U PROT (test code = 3259) Trace Negative - Negat bridgett POCT U GLU (test code = 3256) Nml Negative - Negati ve POCT U KETONE (test code = 3258) Neg Negative - Neg ative POCT U BLD (test code = 3257) ~50 Negative - Negati ve [facility] [id number] 18:35:00* Test Item Value Reference Range Interpretation Comme nts POCT PREG (test code = 1605) Negative On board controls acceptable with C Line (test code = 3574) Yes POCT PREG LOT # (test code = 3575) POCT PREG TEST DATE ( test code = 3576) [facility] [id number] 18:35:00* Test Item Value Reference Range Interpretation Comme nts POCT PREG (test code = 1605) Negative On board controls acceptable with C Line (test code = 3574) Yes POCT PREG LOT # (test code = 3575) POCT PREG TEST DATE ( test code = 3576) [facility] Notes Date/Time Note Provider Source 2024-10-27 16:38:40 Called pt, pt having headache, body aches, and chills x 1 day. Pt denies fever and or cold symptoms. Pt reports felt light headed today while driving today. Advised pt to not drive, and will need to be evaluated at ER due to clinic closing. Strict er warnings given. Verbalized understanding. Jinny Kumar RN 10/27/24 4:44 PM [employer] Jinny Kumar RN [facility] 2024-10-27 16:18:04 Concha Kumar is a 29 year old female Pt had light headedness last week and today headache, dizziness and some body aches no fever. Ate a protein bar and helped very little. Please call [phone] (home) [employer] Layne Portillo [facility] [facility] 2024-09-09 16:57:[address] [facility] 2024-09-09 16:01:16 Concha Kumar is a 29 year old female C/o nauseated x 1 wk , she can't tolerate smells Pt asking for medication [facility] [address] AT [address] [employer] Neda Chang [facility] 2024-05-05 08:34:29 Concha Kumar is a 28 year old female Patient called to request refill for Vienva Please contact pt at [phone] (home) [id number] - [place], [place] - [address] [facility] [address] [address] [facility]
[2024-11-14 11:38] LABS: Specific Gravity 1.025 (1.005-1.030)
--- NOTE | 2024-11-14 11:40 | RAD REPORT ---
EXAM:OB Limited CLINICAL HISTORY: with abdominal pain TECHNIQUE: Limited OB ultrasound performed FINDINGS: Single live intrauterine in breech presentation. Cervix 3.3 cm. Placenta anterior. No subchorionic/retroplacental bleed. Normal amniotic fluid. Cardiac activity 150 bpm. Femur length 2.9 cm 19 weeks 0 days. The right and left adnexa unremarkable IMPRESSION: Single live intrauterine in breech presentation. No gross abnormality on this limited exam. If a survey is desired it can be performed on a nonemergent basis.
[2024-11-14 11:42] LABS: Specific Gravity 1.025 (1.005-1.030); Sqamous Epithelial <5 /HPF (None Seen); Urine Bacteria <20 /HPF (<20); Urine Bilirubin NEGATIVE (Negative); Urine Blood 3+ (OVER) (Negative); Urine Clarity Extremely Turbid (Clear); Urine Color Yellow (Yellow); Urine Culture Reflex Order NOT NEEDED; Urine Glucose NEGATIVE (Negative); Urine Ketones NEGATIVE (Negative); Urine Microscopic Reflex YN ORDER UMIC; Urine Mucus Slight /HPF (None Seen); Urine Nitrite NEGATIVE (Negative); Urine Protein 1+ (Negative); Urine RBC >50 /HPF (None Seen); Urine Urobilinogen Normal (Normal); Urine WBC <5 /HPF (<5); Urine pH 6.5 (5.0-7.0)
[2024-11-14 11:48] LABS: Absolute Eosinophils 0.1 K/uL (0-0.5); Absolute Monocytes 0.5 K/uL (0.1-1.3); Absolute Neutrophil 7.6 K/uL (1.8-8.0); Basophils % 0.3 % (0-1.3); Eosinophils % 0.9 % (0-4.4); Hematocrit 31.5 % (36.0-45.0); Hemoglobin 11.1 g/dL (12.0-15.0); Lymphocytes % 19.7 % (15.3-44.8); MCH 32.1 pg (27.0-35.0); MCHC 35.4 g/dL (32.0-36.0); MCV 90.9 fL (80-100); MPV 7.4 fL (7.6-11.3); Neutrophils % 74.1 % (41.7-73.7); Platelets 278 thou/uL (152-406); RBC Red Blood Cell Count 3.46 M/uL (3.86-4.86)
[2024-11-14 12:20] LABS: Anion Gap 7.5 mEq/L (5.0-15.0); Potassium 3.5 mEq/L (3.5-5.1)
--- NOTE | 2024-11-14 12:58 | ER ---
Nurse's Notes [facility] Name: Carlene Kumar Age: 29 yrs Sex: Female : 1995 Arrival Date: 11/14/2024 Time: 10:38 Bed 17 Private MD: Diagnosis: Threatened ;Abnormal uterine and vaginal bleeding, unspecified Presentation: 11/14 10:51 Chief complaint: Patient states: 20 weeks G3, P2. Started having abdominal ll1 pain and brown vaginal discharge today. Coronavirus screen: Client denies travel out of the [place] in the last 14 days. At this time, the client does not indicate any symptoms associated with coronavirus-19. Ebola Screen: Patient denies travel to an Ebola-affected area in the 21 days before illness onset. Initial Sepsis Screen: Does the patient meet any 2 criteria? No. Patient's initial sepsis screen is negative. Does the patient have a suspected source of infection? No. Patient's initial sepsis screen is negative. Risk Assessment: Do you want to hurt yourself or someone else? Patient reports no desire to harm self or others. Onset of symptoms was November 14, 2024. 10:51 Method Of Arrival: Ambulatory ll1 10:51 Acuity: CAYLA 3 ll1 Triage Assessment: 10:52 General: Appears uncomfortable, Behavior is calm, cooperative, appropriate for age. ll1 Pain: Complains of pain in pelvis Quality of pain is described as crampy. GI: Reports cramping. : Reports vaginal bleeding that is brown, light flow. 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 - Infectious Disease History:: Denies. - Social history:: Smoking status: Patient denies any tobacco usage or history of. Screenin:21 [facility] ED Fall Risk Assessment (Adult) History of falling in the last 3 months, kj2 including since admission No falls in past 3 months (0 pts) Confusion or Disorientation No (0 pts) Intoxicated or Sedated No (0 pts) Impaired Gait No (0 pts) Mobility Assist Device Used No (0 pt) Altered Elimination No (0 pt) Score/Fall Risk Level 0 - 2 = Low Risk Maintained a safe environment, Hourly rounding (assess needs \T\ fall precautionary measures) done. Abuse screen: Denies threats or abuse. Denies injuries from another. Nutritional screening: No deficits noted. Nutritional screening: No deficits noted. Tuberculosis screening: No symptoms or risk factors identified. Assessment: 11:00 General: Appears in no apparent distress. Behavior is calm, cooperative. Pain: kj2 Complains of pain in abdomen Pain currently is 5 out of 10 on a pain scale. Neuro: Level of Consciousness is awake, alert, obeys commands, Oriented to person, place, time, situation. Cardiovascular: Patient's skin is warm and dry. Respiratory: Airway is patent Respiratory effort is even, unlabored. GI: Bowel sounds present X 4 quads. Abd is non tender X 4 quads. 11:48 Reassessment: Patient appears in no apparent distress at this time. Patient and/or kj2 family updated on plan of care and expected duration. Pain level reassessed. Patient is alert, oriented x 3, equal unlabored respirations, skin warm/dry/pink. 12:51 Reassessment: Patient appears in no apparent distress at this time. Patient and/or kj2 family updated on plan of care and expected duration. Pain level reassessed. Patient is alert, oriented x 3, equal unlabored respirations, skin warm/dry/pink. 13:13 Reassessment: Patient appears in no apparent distress at this time. Patient and/or kj2 family updated on plan of care and expected duration. Pain level reassessed. Patient is alert, oriented x 3, equal unlabored respirations, skin warm/dry/pink. Vital Signs: 10:51 BP 113 / 66; Pulse 88; Resp 18; Temp 97.7; Pulse Ox 100% ; Weight 88.45 kg; Height 4 ll1 ft. 11 in. ; Pain 8/10; 11:47 BP 107 / 67; Pulse 78; Resp 18; Pulse Ox 100% ; kj2 12:51 BP 112 / 70; Pulse 80; Resp 18; Temp 98; Pulse Ox 100% on R/A; kj2 13:13 BP 112 / 72; Pulse 78; Resp 20; Temp 98.2; Pulse Ox 100% on R/A; kj2 10:51 Body Mass Index 39.38 (88.45 kg, 149.86 cm) ll1 10:51 Pain Scale: Adult ll1 ED Course: 10:40 Patient arrived in ED. rg4 10:42 Kenneth Garcia FNP-C [facility]. [facility]5 10:42 Mina Santos MD is Attending Physician. dr5 10:52 Triage completed. ll1 10:52 Arm band placed on Patient placed in an exam room, on a stretcher. ll1 11:00 Patient has correct armband on for positive identification. Bed in low position. Call kj2 light in reach. Provided Education on: call light. 11:06 Argelia Healy, RN is Primary Nurse. kj2 11:32 US OB Limited In Process Unspecified. EDMS 11:32 Test, Urine Sent. kj2 11:32 Urinalysis w/ reflexes Sent. kj2 11:40 Inserted saline lock: 20 gauge in right antecubital area, using aseptic technique. kj2 Blood collected. Flushed with 10 mL NS. 13:14 No provider procedures requiring assistance completed. IV discontinued, intact, kj2 bleeding controlled, No redness/swelling at site. Pressure dressing applied. Administered Medications: No medications were administered Medication: 11:22 VIS not applicable for this client. kj2 Outcome: 12:58 Discharge ordered by MD. dr5 13:15 Discharged to home ambulatory, kj2 13:15 Condition: stable 13:15 Discharge instructions given to patient, Instructed on discharge instructions, follow up and referral plans. Demonstrated understanding of instructions, follow-up care, 13:20 Patient left the ED. kj2 Signatures: Dispatcher [employer] Effie Trejo rg4 Jennifer Campoverde RN RN ll1 Argelia Healy, LEONOR RN kj2 Kenneth Garcia FNP-C FNP-Cdr5
--- NOTE | 2024-11-14 12:58 | EDPHYS ---
Physician Documentation [facility] Name: Carlene Kumar Age: 29 yrs Sex: Female : 1995 Arrival Date: 11/14/2024 Time: 10:38 Bed 17 Private MD: ED Physician Mina Santos HPI: 11/14 13:12 This 29 yrs old Female presents to ER via Ambulatory with complaints of 20 wks dr5 , Vaginal Discharge, Abdominal Pain. 13:12 Onset: The symptoms/episode began/occurred this morning. Associated signs and symptoms: dr5 Pertinent positives: abdominal pain. Patient is a 29-year-old female coming in with lower abdominal cramping and brown vaginal discharge that started this morning. Patient reports she had anatomy scan completed yesterday with no concerns. Patient denies urinary discomfort, vomiting.. 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 - Infectious Disease History:: Denies. - Social history:: Smoking status: Patient denies any tobacco usage or history of. ROS: 13:12 Constitutional: as per hpi dr5 Exam: 13:12 Constitutional: This is a well developed, well nourished patient who is awake, alert, dr5 and in no acute distress. Head/Face: Normocephalic, atraumatic. Eyes: Pupils equal round and reactive to light, extra-ocular motions intact. Lids and lashes normal. Conjunctiva and sclera are non-icteric and not injected. Cornea within normal limits. Periorbital areas with no swelling, redness, or edema. Neck: Trachea midline, no thyromegaly or masses palpated, and no cervical lymphadenopathy. Supple, full range of motion without nuchal rigidity, or vertebral point tenderness. No Meningismus. Chest/axilla: Normal chest wall appearance and motion. Nontender with no deformity. No lesions are appreciated. Cardiovascular: Regular rate and rhythm with a normal S1 and S2. Normal PMI, no JVD. No pulse deficits. Abdomen/GI: Soft, non-tender, non-distended Back: No spinal tenderness. No costovertebral tenderness. Full range of motion. Skin: Warm, dry with normal turgor. Normal color with no rashes, no lesions, and no evidence of cellulitis. Neuro: Awake and alert, GCS 15, oriented to person, place, time, and situation. Cranial nerves II-XII grossly intact. Motor strength 5/5 in all extremities. Sensory grossly intact. Cerebellar exam normal. Normal gait. Vital Signs: 10:51 BP 113 / 66; Pulse 88; Resp 18; Temp 97.7; Pulse Ox 100% ; Weight 88.45 kg; Height 4 ll1 ft. 11 in. ; Pain 8/10; 11:47 BP 107 / 67; Pulse 78; Resp 18; Pulse Ox 100% ; kj2 12:51 BP 112 / 70; Pulse 80; Resp 18; Temp 98; Pulse Ox 100% on R/A; kj2 13:13 BP 112 / 72; Pulse 78; Resp 20; Temp 98.2; Pulse Ox 100% on R/A; kj2 10:51 Body Mass Index 39.38 (88.45 kg, 149.86 cm) ll1 10:51 Pain Scale: Adult ll1 MDM: 10:52 Medical Screening Exam initiated dr5 13:12 Differential diagnosis: Threatened Miscarriage, UTI, Spontaneous Miscarriage, dr5 Subchorionic Hemorrhage. Data reviewed: vital signs, nurses notes, lab test result(s), radiologic studies, ultrasound. I considered the following discharge prescriptions or medication management in the emergency department Medications were administered in the Emergency Department. See MAR. Care significantly affected by the following Social Determinants of Health: Poor access to healthcare and/or lack of insurance, Poor access to transportation, Problems related to employment. Counseling: I had a detailed discussion with the patient and/or guardian regarding the historical points, exam findings, and any diagnostic results supporting the discharge/admit diagnosis, the presence of at least one elevated blood pressure reading (>120/80) during this emergency department visit, lab results, radiology results, the need for outpatient follow up, for definitive care, a family practitioner, an OB/Gyne specialist, to return to the emergency department if symptoms worsen or persist or if there are any questions or concerns that arise at home. ED course: Patient ultrasound found to have heart tones of 115 and breech positioning at this time. Patient reports that her urine is feeling better and her abdominal pain has relieved. Recommended take Tylenol every 6 hours as needed for pain. I discussed ultrasound results with blood work and printed out and handed to patient. Patient is going to take labs and radiology results to OB appointment this Saturday and will return for worsening conditions. Patient is leaving ER today with no pain complaints.. 11/14 10:58 Order name: Abo/rh Typing; Complete Time: 12:33 dr5 11/14 10:58 Order name: Basic Metabolic Panel; Complete Time: 12:33 dr5 11/14 10:58 Order name: CBC with Diff; Complete Time: 11:52 dr5 11/14 10:58 Order name: Test, Urine; Complete Time: 11:39 dr5 11/14 10:58 Order name: Quantitative Hcg; Complete Time: 12:33 dr5 11/14 10:58 Order name: Urinalysis w/ reflexes; Complete Time: 11:43 dr5 11/14 10:58 Order name: US OB Limited; Complete Time: 11:43 dr5 11/14 10:58 Order name: IV Saline Lock; Complete Time: 11:43 [facility] 11/14 10:58 Order name: Labs collected and sent; Complete Time: 11:43 dr5 11/14 10:58 Order name: NPO; Complete Time: 11:32 dr5 Administered Medications: No medications were administered Disposition Summary: 11/14/24 12:58 Discharge Ordered Notes: Location: Home dr5 Condition: Stable dr5 Diagnosis - Threatened dr5 - Abnormal uterine and vaginal bleeding, unspecified dr5 Followup: dr5 - With: Emergency Department - When: As needed - Reason: Worsening of condition Followup: dr5 - With: Private Physician - When: 5 - 6 days - Reason: Further diagnostic work-up, With OBGYN as scheduled on 11/20/24 Discharge Instructions: - Discharge Summary Sheet dr5 - Abnormal Uterine Bleeding dr5 - Vaginal Bleeding During , Second Trimester dr5 Forms: - Medication Reconciliation Form dr5 - Patient Portal Instructions dr5 - Leadership Thank You Letter dr5 Signatures: Dispatcher [employer] Jennifer Archibald RN RN ll1 Argelia Healy RN RN kj2 Kenneth Garcia, MACADAM RAKER-C MACADAM RAKER-Cdr5 Corrections: (The following items were deleted from the chart) 10:59 10:59 OB Limited+US.RAD.BRZ ordered. EDMS EDMS
[2024-11-14 13:41] VITALS: O2SAT 100
[2024-11-14 13:45] VITALS: BP 112/72; TEMP 98.2
== END 2024-11-14 13:20 | disposition home or self-care (01) ==
LOC: ER 10:38
DX: O20.0 Threatened abortion (principal); Z3A.20 20 weeks gestation of pregnancy
CPT/HCPCS: 36415; 76815; 80048; 81001; 81025; 84702; 85025; 86900; 86901; 99284